=== PATIENT | female | born 1985 | race Caucasian/White ===

== ENCOUNTER 2020-12-22 12:00 | Outpatient (CLI) | payer OTHER, SELFPAY ==
[2020-12-22 13:43] LABS: Hepatitis B Surface Antigen Negative (Negative)
[2020-12-22 13:50] LABS: HIV 1/2 Ab P24 Ag Result Negative (Negative)
[2020-12-22 14:00] LABS: Hepatitis C Virus Antibody Negative (Negative)
[2020-12-24 11:01] LABS: Rapid Plasma Reagin Non-Reactive (NonReactive)
[2020-12-25 21:01] LABS: Hepatitis Be Antibody Nonreactive
[2020-12-26 18:32] LABS: HSV 1 IgM Screen Negative (Negative); HSV 2 IgM Screen Negative (Negative)
== END 2020-12-22 12:01 | disposition home or self-care (01) ==
PROVIDERS: Visit Provider Obstetrics & Gynecology
DX: A64 Unspecified sexually transmitted disease (principal)
CPT/HCPCS: 36415; 86592; 86695; 86696; 86703; 86707; 86803; 87340; G0432

== ENCOUNTER → 2021-02-23 00:34 | Outpatient (CLI) | payer OTHER, SELFPAY ==
[2021-02-23 20:54] LABS: SARS-CoV-2 RNA PCR Negative
== END ==
PROVIDERS: Visit Provider Obstetrics & Gynecology
DX: Z01.812 Encounter for preprocedural laboratory examination (principal); Z20.822 Contact with and (suspected) exposure to COVID-19
CPT/HCPCS: C9803; U0003; U0005

== ENCOUNTER 2021-02-27 00:26 | Day surgery (SDC) | payer OTHER, SELFPAY ==
[2021-02-15 13:56] VITALS: BMI 48.0
--- NOTE | 2021-02-26 14:31 | WPDANESEPPF ---
Anes - Initial Pre Proc Eval Procedure: Operation Date: 02/27/21 07:30 Proposed Procedures p Total Laparoscopic Assisted Hysterectomy With Bilateral Salpingectomy - Jael Carl MD Date/Time: 02/26/21 14:31 Surgeon: Jael Carl MD Pre Op Diagnosis: Menorrhagia Patient Data Age: 35 Gender: F Height: 1.77 m Weight: 149.7 kg Allergies Allergy/AdvReac Type Severity Reaction Status Date / Time Penicillins AdvReac Mild RASH ON Verified 02/27/21 06:18 CHEST/NECK Home Medications Medication Instructions Recorded Confirmed Type alprazolam 0.5 mg PO BID PRN 02/15/21 02/27/21 History Patient hx anesthesia problems: none Family hx anesthesia problems: none PMFSH Past Medical History Medical History (Updated 02/26/21 @ 14:32 by Catracho Manzano MD) Anxiety Migraine Morbid obesity with BMI of 45.0-49.9, adult Social History Social History Years smoked: 10 Smoking status: Former smoker Tobacco type: cigarettes Alcohol intake: current Alcohol use details: 1/MONTH Substance use: current Substance use type: marijuana Other substance usage details: EDIBLES Last use: 02/14/21 Living arrangements: with family Spiritual care concerns: No Anes - Eval Final PreProcedure Day of Procedure 02/26/21 14:31 Patient weight: morbidly obese Heart: regular rate and rhythm Lungs: clear to auscultation and normal air movement Airway: Mallampati scale class II Neurological: alert and oriented Last oral intake: >/= 8 hours ASA classification: III Emergent: no Anesthetic plan: proceed Anesthesia type and monitoring: general ETT Informed Consent: The patient's anesthetic plan and its attendant risks and benefits were discussed with the patient/family/POA. Questions were solicited and answers provided to the satisfaction of the patient/family/POA.
[2021-02-27] VITALS (12 sets, daily range): BP systolic 104–136; BP diastolic 50–81; PULSE 58–91; RESP 13–20; TEMP 36.2–37.3; O2SAT 94–100
[2021-02-27] MEDS: ACETAMINOPHEN 500 MG TABLET 1000 MG PO (06:20)
[2021-02-27] MEDS: LACTATED RINGERS 1,000 ML 30 ML IV CONT ×2 (06:40→10:14)
[2021-02-27] MEDS: KETOROLAC 15 MG/ML VIAL (*BKC) IV PUSH (06:46)
--- NOTE | 2021-02-27 07:18 | WPDHPUPDATE1 ---
History and Physical Update Update Date/Time: 02/27/21 07:18 History and Physical has been reviewed, including an updated exam of the patient. There are NO changes in the patient's condition. Risks, benefits, and alternatives have been discussed and questions answered. Patient agrees to proceed with procedure.
[2021-02-27] MEDS: ceFAZolin 3 GM/D5W 100 ML 100 ML IVPB (07:38)
[2021-02-27] MEDS: SCOPOLAMINE 1.5 MG PATCH TRANSDERM (08:36)
--- NOTE | 2021-02-27 10:16 | PM.PROC ---
Procedure Note - Detailed Date of procedure: 02/27/21 Pre-op diagnosis: Menorrhagia Myoma Post-op diagnosis: same Procedure performed: Total laparoscopic hysterectomy. Description of procedure: The patient was taken to the operating room. She was prepped and draped in the dorsal lithotomy position. A speculum was placed in the vagina. The cervix was grasped with a tenaculum. Stay sutures were placed at 3 and 9:00 a.m. of 0 Vicryl. The stay sutures were brought through the Celestine up. The ARLYN manipulator was placed in the vagina with a fixed Celestine cup. The cup was then pushed up around the cervix. The sutures were tied to the handle of the ARLYN manipulator. A 5 mm incision was made on the abdominal skin of the left upper quadrant using a scalpel. A 5 mm trocar was inserted into the intra-abdominal cavity under direct visualization the scope. Pneumoperitoneum was achieved. An 11 mm incision was made in the left lower quadrant of the abdomen with a scalpel. A 11 mm trocar was inserted into the intra-abdominal cavity under direct visualization the scope. A 5 mm periumbilical incision was made. A 5 mm scope was placed into the intra-abdominal cavity under direct visualization of the scope. The bilateral fallopian tubes were removed. The paratubal tissue in the area of the uterus was grasped with the LigaSure cautery and transected after being cauterized. The paratubal tissue from the ovary to the uterine cornu was cauterized and transected with LigaSure cautery. This was all done in a bilateral fashion. The tube was transected at the area of the uterine cornua and the tubes was removed through the 11 mm trocar site. The suspensory ligament of the ovary was cauterized and transected with ligature cautery in a bilateral fashion. The fallopian tubes were cauterized and transected in a bilateral fashion with LigaSure cautery. The round ligaments were cauterized and transected in bilateral fashion with LigaSure cautery. The round ligaments were cauterized and transected bilaterally with LigaSure cautery. The broad ligaments were cauterized and transected along the lateral aspects of the uterus down the level of the uterine arteries. A bladder flap was created using sharp and blunt dissection. The ureters were dissected out bilaterally down to the level of the uterine arteries. They could be visualized from the pelvic brim down the uterine arteries. Staying very close to the cervix the parametrium was cauterized transected in a stepwise fashion down to the level of the Celestine cup. The Bladder flap was moved distally over the Celestine cup using sharp and blunt dissection. The impression of the entire cup was visualized around the cervix. An incision was made with unipolar cautery down under the Celestine cup creating a colpotomy incision all the way around the cervix. The uterus was taken out through the vagina. A pneumo occluder was placed in the vagina. The vagina was closed with 0 V lock suture in a running fashion. The ureters were identified again and found to be intact to the level of the uterine arteries. The pelvis was irrigated with a copious amount of antibiotic irrigation. The pneumoperitoneum was reduced. The trocars were removed. The skin was closed subcuticular 4 Monocryl covered with Dermabond. The pneumo occluder was removed from the vagina. The vagina was irrigated with Betadine. The patient tolerated the procedure well. She was taken to the recovery room in stable condition. Sponge lap and needle counts were correct x2. Anesthesia: GETA Surgeon: Jael Carl MD Estimated blood loss (mL): 200 Drains: No Packing: No Pathology: yes Complications: No immediate complications Condition: stable Disposition: PACU Findings: Grossly normal appearing tubes and ovaries. Uterus - 11cm
[2021-02-27] MEDS: fentaNYL CITRATE INJ (*CRX) 100 MCG/2 ML VIAL 25 MCG IV PUSH (11:12)
--- NOTE | 2021-02-27 11:34 | PC.NURSE ---
This patient, Klaudia Dasilva, was received from PACU per bed to room 279. Patient/family oriented to unit policies and routines
[2021-02-27] MEDS: HYDROcodone/acetaminophen (*CRX) 10-325 MG TABLET 1 TAB PO ×4 (11:45→23:52)
[2021-02-27] MEDS: KETOROLAC 30 MG/ML VIAL (*BKC) IV PUSH (14:03)
[2021-02-27] MEDS: ALPRAZolam (*CRX) 0.5 MG TABLET PO (17:20)
[2021-02-27] MEDS: fentaNYL CITRATE INJ (*CRX) 100 MCG/2 ML VIAL 50 MCG IV PUSH ×3 (17:20→21:47)
[2021-02-27] MEDS: SIMETHICONE 80 MG TAB.CHEW PO (23:56)
[2021-02-28 04:30] VITALS: BP 114/55; PULSE 52; RESP 17; TEMP 36.9
[2021-02-28] MEDS: HYDROcodone/acetaminophen (*CRX) 10-325 MG TABLET 1 TAB PO ×3 (04:37→11:53)
[2021-02-28] MEDS: SIMETHICONE 80 MG TAB.CHEW PO ×3 (04:41→11:52)
[2021-02-28] MEDS: IBUPROFEN 600 MG TABLET PO (07:43)
[2021-02-28] MEDS: ALPRAZolam (*CRX) 0.5 MG TABLET PO (07:43)
[2021-02-28 08:00] VITALS: BP 107/55; PULSE 70; RESP 18; TEMP 36.9; TEMP 37.1; O2SAT 100
--- NOTE | 2021-02-28 08:06 | PM.GYNPNOP ---
MOBILE APPLICATION DEVELOPER - A/P Postoperative Procedures: Procedures Operation Date: 02/27/21 07:30 Actual Procedure Side Surgeon p Total Laparoscopic Assisted Hysterectomy With Bilateral Salpingectomy Bilateral Jael Carl MD Postoperative day: 1 Postoperative status: doing well Postoperative plan: see orders Time Spent With Patient Time: Total time spent is greater than 50% in coordination of care (as documented) at patient's floor/unit and/or counseling patient: Time with patient: less than 15 minutes MOBILE APPLICATION DEVELOPER- PN:Subj Post-Op Subjective Date/time seen: 02/28/21 08:06 Subjective: patient reports feeling better, patient has no complaints and pain is well controlled Exam Const: General: healthy appearing, comfortable and no acute distress Resp: Auscultation: clear to auscultation bilaterally, no rales, no rhonchi and no wheezes Cardio: Rate: regular rate Heart sounds: no click, no murmurs and no rubs GI: Inspection: non-distended Auscultation: normal bowel sounds Extrem: General: normal to inspection, no pedal edema and no calf tenderness MOBILE APPLICATION DEVELOPER - PN: Obj Data Vital Signs Vital Signs: Vital Signs - 24 hr 02/27/21 10:14 02/27/21 10:25 02/27/21 10:39 Temperature 97.5 F L Pulse Rate 84 66 75 Respiratory Rate 20 18 18 Blood Pressure 111/68 109/69 107/66 Pulse Oximetry 100 100 100 02/27/21 10:45 02/27/21 11:00 02/27/21 11:15 Temperature 97.8 F Pulse Rate 70 72 65 Respiratory Rate 16 16 16 Blood Pressure 111/71 112/64 104/70 Pulse Oximetry 100 95 95 02/27/21 11:29 02/27/21 11:35 02/27/21 16:00 Temperature 97.2 F L 97.8 F Pulse Rate 58 L 61 87 Respiratory Rate 16 18 20 Blood Pressure 119/80 115/81 136/67 Pulse Oximetry 94 100 02/27/21 19:20 02/27/21 23:55 02/28/21 04:30 Temperature 99.1 F 98.7 F 98.4 F Pulse Rate 79 71 52 L Respiratory Rate 17 13 17 Blood Pressure 119/50 L 124/67 114/55 L Pulse Oximetry Intake/Output Intake/Output: Intake & Output 02/25/21 02/26/21 02/27/2102/28/21 23:59 23:59 23:59 23:59 Intake Total 540 500 Output Total 1650 800 Balance -1110 -300 Meds/Results Medications: Active Medications Generic Name Dose Route Start Last Admin Trade Name Freq PRN Reason Stop Dose Admin Hydrocodone Bitart/Acetaminophen 1 tab 02/27/21 10:17 Hydrocodone/Acetaminophen (*Crx) 5-325 Mg Tablet PO Q3H PRN Pain Rated 5 or Less Hydrocodone Bitart/Acetaminophen 1 tab 02/27/21 10:17 02/28/21 07:43 Hydrocodone/Acetaminophen (*Crx) 10-325 Mg Tablet PO 1 tab Q3H PRN Administration Pain Rated 6 or Greater Alprazolam 0.5 mg 02/27/21 17:09 02/28/21 07:43 Alprazolam (*Crx) 0.5 Mg Tablet PO 0.5 mg BID PRN Administration Anxiety Fentanyl Citrate 50 mcg 02/27/21 17:07 02/27/21 21:47 Fentanyl Citrate Inj (*Crx) 100 Mcg/2 Ml Vial IV PUSH 50 mcg Q2H PRN Administration Breakthrough Pain Ibuprofen 600 mg 02/27/21 10:17 02/28/21 07:43 Ibuprofen 600 Mg Tablet PO 600 mg Q6H PRN Administration Cramping Ketorolac Tromethamine 30 mg 02/27/21 10:17 02/27/21 14:03 Ketorolac 30 Mg/Ml Vial (*Bkc) IV PUSH 03/04/21 10:18 30 mg Q6H PRN Administration Pain Rated 4-6 Naloxone HCl 0.1 mg 02/27/21 10:17 Naloxone Hcl 0.4 Mg/Ml Vial IV PUSH Q2M PRN Respiratory rate less than 10 Ondansetron HCl 4 mg 02/27/21 10:17 Ondansetron Inj 4 Mg/2 Ml Vial IV PUSH Q6H PRN Nausea And Vomiting Simethicone 80 mg 02/27/21 21:44 02/28/21 07:43 Simethicone 80 Mg Tab.Chew PO 80 mg Q2HR PRN Administration Gas Discomfort Labs Labs: Laboratory Results - last 24 hr 02/27/21 06:45 Blood Type A Positive Antibody Screen Negative
--- NOTE | 2021-02-28 09:27 | PC.NURSE ---
Pt. doing well. Passing gas and moving about room with slow steady pace. Discharge instructions given including when to follow up with Dr. Carl. Pt. verbalized understanding. Mother at side.
--- NOTE | 2021-02-28 09:37 | WPDANESPN ---
Anes - Prog Note Post-Op Date/Time: 02/28/21 09:37 Cardiovascular status: normal Respiratory status: normal Airway patency: baseline Mental status: baseline Post-Op hydration status: normal Vital Signs: Last Vital Signs Temp 37.1 C 02/28/21 08:00 Pulse 70 02/28/21 08:00 Resp 18 02/28/21 08:00 BP 107/55 L 02/28/21 08:00 Pulse Ox 100 02/28/21 08:00 Pain Score (VAS): 0 I/O: Intake & Output 02/27/21 02/28/21 02/28/21 23:59 07:59 15:59 Intake Total 500 600 Output Total 442 229 1655 Balance -250 -300 -575 Post-procedural complaints: none Patient Feedback: Patient satisfied with anesthetic care.
== END 2021-02-28 12:05 | disposition home or self-care (01) ==
LOC: ANHSURGERY 06:09 → ANHOB2 11:41
PROVIDERS: Visit Provider Obstetrics & Gynecology
PROC: 0UT9FZZ Resection of Uterus, Via Natural or Artificial Opening With Percutaneous Endoscopic Assistance (ICD-10-PCS; CPT 58571; principal; 2021-02-27 07:30)
DX: N92.0 Excessive and frequent menstruation with regular cycle (principal); N84.0 Polyp of corpus uteri; N83.8 Other noninflammatory disorders of ovary, fallopian tube and broad ligament; F32.9 Major depressive disorder, single episode, unspecified; E66.01 Morbid (severe) obesity due to excess calories; Z68.42 Body mass index [BMI] 45.0-49.9, adult; Z87.891 Personal history of nicotine dependence
CPT/HCPCS: 58571; 36415; 86850; 86900; 86901; 88307; 99199; A9270; C9803; J0330; J0690; J1100; J1200; J1885; J2250; J2405; J2704; J2710; J3010; J7030; J7120; U0003; U0005

== ENCOUNTER 2021-04-09 11:07 | Outpatient (CLI) | payer OTHER, SELFPAY ==
--- NOTE | ~2021-04-09 | CT_ITS ---
EXAMINATION: CT abdomen pelvis w con DATE: 04/09/2021 11:42 INDICATION: Postoperative pain. Status post hysterectomy on 02/27/2021 TECHNIQUE: Computed tomography (CT) of the abdomen and pelvis was performed with 100 cc Omnipaque 350 intravenous contrast. The dose-length product was 1128.14 mGy-cm. Automated exposure control and ite rative reconstruction technique were employed. COMPARISON: None. FINDINGS: Lung bases are unremarkable. Heart size normal. No significant pleural or pericardial effus ion. There is a small fat-containing umbilical hernia. No free air or free fluid. Status post hysterectomy. Bladder is decompressed. Fatty infiltration of the liver. Gallbladder is present. The spleen, pancreas, adrenal glands and kid neys are unremarkable. Nonobstructive bowel gas pattern. Small fat-containing umbilical hernia. Few s cattered diverticula of the colon without diverticulitis. IMPRESSION: 1. No acute abdominal abnormality. 2: Hepatic steatosis. Reviewed, dictated and finalized at location B.
== END 2021-04-09 11:08 ==
PROVIDERS: Visit Provider Obstetrics & Gynecology
DX: G89.18 Other acute postprocedural pain (principal); K76.0 Fatty (change of) liver, not elsewhere classified
CPT/HCPCS: 74177; Q9967

== ENCOUNTER 2025-06-28 09:17 | Emergency (ER) | payer BC, SELFPAY ==
--- NOTE | ~2025-06-28 | XR_ITS ---
EXAMINATION: XR ankle RT min 3V DATE: 06/28/2025 09:51 INDICATION: Fall. Ankle TECHNIQUE: 4 images of the right ankle were obtained. COMPARISON: None. FINDINGS: Tiny acute avulsion fracture of the distal aspect of the lateral malleolus with adjacent soft tissue swelling. There is a 6 mm ossific density along the anterior aspect of the distal right tibia about the tibiotalar joint seen in the lateral projection. Differential includes osteophyte or avulsion fracture of indeterminate age. No other fracture identified. Talar dome is unremarkable. Soft tissue swelling about the right ankle. Small plantar calcaneal spur. IMPRESSION: 1. Tiny acute avulsion fracture of the distal aspect of the lateral malleolus with adjacent soft tissue swelling. 2. There is a 6 mm ossific density along the anterior aspect of the distal right tibia about the tibiotalar joint seen in the lateral projection. Differential includes osteophyte or avulsion fracture of indeterminate age. Correlate for point tenderness. Consider a CT or MRI for further assessment. Reviewed, dictated and finalized at location Q. IMPRESSION: 1. Tiny acute avulsion fracture of the distal aspect of the lateral malleolus w ith adjacent soft tissue swelling. 2. There is a 6 mm ossific density along the anterior aspect of the distal righ t tibia about the tibiotalar joint seen in the lateral projection. Differential includes osteophyte or avulsion fracture of indeterminate age. Correlate for p oint tenderness. Consider a CT or MRI for further assessment.
--- NOTE | ~2025-06-28 | CT_ITS ---
EXAMINATION: CT ankle RT wo con DATE: 06/28/2025 10:30 INDICATION: Right ankle pain. Avulsion fracture. TECHNIQUE: Computed tomography (CT) of the right ankle was performed without intravenous contrast. The dose-length product was 363.99 mGy-cm. Automated exposure control and iterative reconstruction technique were employed. COMPARISON: CT dated 06/28/2025 FINDINGS: There is an avulsion fracture distal tip of the fibula. No distal tibial fracture is identified. There are small degenerative calcaneal enthesophytes. 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 There is mild lateral soft tissue swelling. Talar dome is unremarkable. IMPRESSION: 1. Small avulsion fracture distal aspect of the fibula. Reviewed, dictated and finalized at location O.
[2025-06-28 09:23] VITALS: BP 133/80; PULSE 87; RESP 20; TEMP 36.7; O2SAT 99
--- OUTSIDE RECORDS SUMMARY | 2025-06-28 09:28 | XMS_ITS | Encounter Summary ---
Author Organization [facility] Address [address] [place] [address] Phone Care Team Providers Care Food Quality Technician Name Role Phone Ildefonso Block MD Unavailable [phone] Debbie Clement NP Primary Care Provider [phone] Encounter Details Date Type Department Care Team (Latest Contact Info) Description 06/27/2025 Results Follow-Up [facility] [address] [place] [address] David Adkins PA [address] [place] [address] CBC with auto differential, Comprehensive metabolic panel Social History Tobacco Use Types Packs/Day Years Used Date Smoking Tobacco: Every Day Vaping Started: 2023 Smokeless Tobacco: Never AUDIT-C Answer Date Recorded Q1: How often do you have a drink containing alcohol? Never 05/11/2025 Q2: How many drinks containi ng alcohol do you have on a typical day when you are drinking? Patient does not drink Q3: How often do you have si x or more drinks on one occasion? Never 05/11/2025 PHQ-2 Answer Date Recorded PHQ-2 Total Score (If total score is 3 or more points, staff should administer the PHQ-9) 2 05/11/2025 PHQ-9 Answer Date Recorded PHQ-9 Total Score 9 05/11/2025 Personal Safety Answer Date Recorded Have you ever been in or are you currently in a harmful physical or emotional relationship or is someone making you feel afraid or unsafe? Denies 01/27/2025 Comments No Sex and Gender Information Value Date Recorded Sex Assigned at Not on file Legal Sex Female 3:17 PM CLASSIFIED AD TAKER Gender Identity Not on file Sexual Orientation Not on file documented as of this encounter Plan of Treatment Not on file documented as of this encounter Visit Diagnoses Not on filedocumented in this encounter Care Teams Food Quality Technician Relationship Specialty Start Date End Date Debbie Clement NP [address] [facility] [address] [place] [address] PCP - General Family Medicine 06/14/24 Ildefonso Block MD [address] [place] [address] DR EDY Valencia [facility] [address] [place] [address] Surgeon Orthopedic Surgery 09/02/21 documented as of this encounter
--- OUTSIDE RECORDS SUMMARY | 2025-06-28 09:28 | XMS_ITS | Clinical Summary ---
Author Organization [facility] Address [address] [place] [address] Phone Care Team Providers Care Correctional Medicine Physician Name Role Phone Unavailable Primary Care Provider Unavailabl e Allergies Active Allergy Reactions Criticality Noted Date Comments Penicillins Hives Medium 12/29/2019 Medications ondansetron (ZOFRAN-ODT) 4 MG TABLET DISPERSIBLE Take 1 Tablet by mouth every 8 hours as needed for Nausea - 1st line. 20 Tablet 02/15/20 23 Active prochlorperazine (COMPAZINE) 10 MG TabletIndications:V iral gastroenteritis Take 1 Tablet by mouth every 8 hours as needed for Nausea - 2nd line. 30 Tablet 03/02/20 24 Active Additional Information Patient not taking.Reported on 06/14/2024 hydroxychloroquine (PLAQUENIL) 200 MG Tablet Take 400 mg by mouth daily. Active VITAMIN D PO Take by mouth. Ac tive Active Problems Problem Noted Date Diagnosed Date Chronic joint pain 08/19/2022 Joint swelling 08/19/2022 Immunizations Immunization Administration Dates Next Due Influenza Vaccine, Quadrivalent, PF 09/12/2022 Family History Medical History Relation Name Comments Congestive Heart Failure Father Jamaal Heart Attack Father Jamaal Diabetes Maternal Aunt 1 Aisha Thyroid Disease Maternal Aunt 1 Aisha Diabetes Maternal Aunt 2 Brenda Diabetes Maternal Grandfather Jesus Heart Attack Maternal Grandfather Jesus Hypertension Maternal Grandfather Jesus Diabetes Maternal Grandmother Armando Diabetes Maternal Uncle 1 Sammy Diabetes Maternal Uncle 2 Jeff Diabetes Mother Najma Migraines Mother Najma Rheumatoid Arthritis Mother Najma Congestive Heart Failure Paternal Grandfather Horace Diabetes Paternal Grandfather Horace Heart Attack Paternal Grandfather Horace Diabetes Paternal Grandmother Vidhya Congestive Heart Failure Paternal Uncle 1 Horace (Jean Claude) Diabetes Paternal Uncle 1 Horace (Jean Claude) Diabetes Paternal Uncle 2 Andrew Relation Name Status Comments Father Jamaal Maternal Aunt 1 Aisha Maternal Aunt 2 Brenda Maternal Grandfather Jesus Maternal Grandmother Armando Maternal Uncle 1 Sammy Maternal Uncle 2 Jeff Mother Najma Paternal Grandfather Horace Paternal Grandmother Vidhya Paternal Uncle 1 Horace (Jean Claude) Paternal Uncle 2 Andrew Social History Tobacco Use Types Packs/Day Years Used Date Smoking Tobacco: Former Cigarettes 0.3 10 Smokeless Tobacco: Never Tobacco Cessation:Counseling Given: Not Answered Alcohol Use Standard Drinks/Week Comments Not Currently 0 (1 standard drink = 0.6 oz pur e alcohol) [facility] Utilities Answer Date Recorded In the past 12 months has e electric, gas, oil, or water [employer] threatened to shut off services in your home? Patient declined 03/02/2024 Social Connection and Isolation Panel Answer Date Recorded In a typical week, how many times do you talk on the phone with family, friends, or neighbors? Patient declined 03/02/2024 How often do you get togethe r with friends or relatives? Patient declined 03/02/2024 How often do you attend buddhism or hindu serv ices? Patient declined 03/02/2024 Do you belong to any clubs o r organizations such as buddhism groups, unions, fraternal or athletic groups, or school groups? Patient declined 03/02/2024 How often do you attend meet ings of the clubs or organizations you belong to? Patient declined 03/02/2024 Are you , , di vorced, , never , or living with a partner? Patient declined 03/02/2024 AUDIT-C Answer Date Recorded Q1: How often do you have a drink containing alc ohol? Patient declined 03/02/2024 Q2: How many drinks containi ng alcohol do you have on a typical day when you are drinking? Patient declined 03/02/2024 Q3: How often do you have si x or more drinks on one occasion? Patient declined 03/02/2024 Overall Financial Resource Strain (CARDIA) Answe r Date Recorded How hard is it for you to pa y for the very basics like food, housing, medical care, and heating? Patient declined 03/02/2024 PHQ-2 Answer Date Recorded Total Score - Questions 1-9 0 12/04 [facility] - Occupational Stress Questionnaire Answer Date Recorded Do you feel stress - tense, restless, nervous, or anxious, or unable to sleep at night because your mind is troubled all the time - these days? Patient declined 03/02/2024 Exercise Vital Sign Answer Date Recorde d On average, how many days pe r week do you engage in moderate to strenuous exercise (like a brisk walk)? Patient declined On average, how many minutes do you engage in exercise at this level? Patient declined 03/02/2024 Hunger Vital Sign Answer Date Recorded Within the past 12 months, y ou worried that your food would run out before you got the money to buy more. Patient declined Within the past 12 months, t he food you bought just didn't last and you didn't have money to get more. Patient declined 11/2023 PRAPARE - Transportation Answer Date Re corded In the past 12 months, has l ack of transportation kept you from medical appointments or from getting medications? Patient declined 03/02/2024 In the past 12 months, has l ack of transportation kept you from meetings, work, or from getting things needed for daily living? Patient declined 03/02/2024 Housing Stability Vital Sign Answer Jaime e Recorded In the last 12 months, was t here a time when you were not able to pay the mortgage or rent on time? Patient declined 03/02/20 24 Number of Places Lived in the Last Year Not on f ile 03/02/2024 In the last 12 months, was t here a time when you did not have a steady place to sleep or slept in a penitentiary (including now)? Patient declined 03/02/2024 Sexually Active Control Partners Comments Not Currently Female, Male Comments No Sex and Gender Information Value Date Recorded Sex Assigned at Not on file Legal Sex Female 10:40 PM CDT Gender Identity Not on file Sexual Orientation Not on file Last Filed Vital Signs Vital Sign Reading Time Taken Comments Blood Pressure 138/86 06/14/2024 11:51 AM CDT Pulse 78 06/14/2024 11:51 AM CDT Temperature 36.7 C (98 F) 06/14/2024 11:51 AM CDT Respiratory Rate 18 06/14/2024 11:5 1 AM CDT Oxygen Saturation 99% 06/14/2024 11: 51 AM CDT Inhaled Oxygen Concentration - - Weight 153.2 kg (337 lb 11.2 oz) 03/02/2024 1:44 PM CDT Height 177.8 cm (5' 10) 03/02/2024 1:44 PM CDT Body Mass Index 48.45 03/02/2024 1:44 PM CDT Plan of Treatment Health Maintenance Due Date Last Done Comments Mammogram 1984 TdaP Immunization 1984 Human Papillomavirus (HPV) Immunization (1 - 3-dose SCDM series) 2011 Discussion re Starting/Frequency of Mammograms 2024 Influenza Immunization (#1) 2025 09/12/2022, 0 11/15/2019 Respiratory Syncytial Virus (RSV) Immunization (Adult) (1 - 1-dose 75+ series) 2059 DTaP/Tdap/Td Immunization Discontinued 1998, 06/10/1989, 05/06/1986, Additional history exists Hepatitis B Immunization Discontinued 07/05/1999, 0804/1999 Hepatitis C Virus (HCV) Screening Completed 02/11/2024, 08/19/2022 Meningococcal Immunization (ACWY) Aged Out No longer eligible based on patient's age to complete this topic Pneumococcal Immunization Combined Aged Out No longer eligible based on patient's age to complete this topic Rotavirus Immunization Aged Out No lo nger eligible based on patient's age to complete this topic SARS-COV-2 Immunization Discontinued Procedures Procedure Name Priority Date/Time Associated Diagnosis Comments HEPATITIS PANEL ACUTE (AHP) Routine 08/19/2022 9:32 AM CDT Chronic joint pain Joint swelling from Last 3 Months or Most Recently Relevant to Health Maintenance Results * HEPATITIS PANEL ACUTE (AHP) (08/19/2022 9:32 AM CDT) HEPATITIS A IGM ANTIBODY NON DETECTED NON DETECTED [facility] [id number] B 08/19/2022 3:40 PM CDT [facility] Comment: IGM Antibodies to HAV not detected. Does not exclude early acute or recovered HAV infection. HEP B CORE AB (IGM) NON DETECTED NON DETECTED [facility] [id number] B 08/19/2022 3:40 PM CDT [facility] Comment:IGM anti-HBC not det ected. Does not exclude the possibility of exposure to or infection with HBV. HEPATITIS B SURFACE ANTIGEN NON DETECTED NON DETECTED [facility] [id number] B 08/19/2022 3:40 PM CDT [facility] Comment:A nonreactive test r esult does not exclude the possibility of exposure to or infection with Hepatitis B virus. A nonreactive test result in individuals with prior exposure to hepatitis B may be due to antigen levels below the detection limit of this assay or lack of antigen reactivity to the antibodies in this assay. hepatitis C antibody 0.17 <1 S/CO [facility] [id number] B 08/19/2022 3:40 PM CDT [facility] Comment: Signal/Cutoff ratio < 0.79 is Nondetected Signal/Cutoff ratio 0.80-0.99 is Grayzone Signal/Cutoff ratio > 0.99 is Detected Supplemental assays are recommended if signal/cutoff ratio is >/=1.00. Signal/cutoff ratio result >/= 5.00 is 97% predictive of positivity for recombinant immunoblot assay (RIBA) and will be reported to the [place] [facility] of Public [facility] as required. Blood Venipuncture / Unknown 08/19/2022 9:32 AM CDT 08/19/2022 9:58 AM CDT us Federico Marti MD HEMATOLOGY ORDERABLES Final Resu lt [facility] [address] [place] [address], [place] from Last 3 Months or Most Recently Relevant to Health Maintenance Insurance [place] [id number] [facility]
--- OUTSIDE RECORDS SUMMARY | 2025-06-28 09:28 | XMS_ITS | Encounter Summary ---
Author Organization [facility] Address [address] [place] [address] Phone Care Team Providers Care Culinary Arts Instructor Name Role Phone Federico Marti MD Primary Care Provider [phone] Reason for Visit * Reason Comments Medication Refill Encounter Details Date Type Department Care Team (Late st Contact Info) Description 03/16/2023 Refill [facility] [address] [place] [address] Federico Marti MD [address] [place] [address] Medication Refill Social History Tobacco Use Types Packs/Day Years Used Date Smoking Tobacco: Former Cigarettes 0.3 10 Smokeless Tobacco: Never Alcohol Use Standard Drinks/Week Comments Not Currently 0 (1 standard drink = 0.6 oz pur e alcohol) Sexually Active Control Partners Comments Not Currently Female, Male Comments No Sex and Gender Information Value Date Recorded Sex Assigned at Not on file Legal Sex Female 10:40 PM CDT Gender Identity Not on file Sexual Orientation Not on file COVID-19 Exposure Response Date Recorded In the last 10 days, have yo u been in contact with someone who was confirmed or suspected to have Coronavirus/COVID-19? No / Unsure 02/18/2023 7:44 AM CDT documented as of this encounter Miscellaneous Notes * Telephone Encounter - Diamond Song RN - 03/16/2023 4:45 PM CDT Medication failed the protocol, provider to review and approve the medication order if appropriate. Requested Prescriptions Pending Prescriptions Disp Refills gabapentin (NEURONTIN) 100 MG Capsule [Pharmacy Med Name: GABAPENTIN 100 MG CAPSULE] 90 Capsule 1 Sig: TAKE 1 CAPSULE BY MOUTH THREE TIMES A DAY Not Delegated - Anticonvulsants Excluding Benzodiazepines Protocol Failed - 03/16/2023 1:56 PM Failed - This refill cannot be delegated Passed - Visit with relevant provider in past 12 months or upcoming 90 days Recent Visits Date Type Provider Dept 02/18/23 Office Visit Janeth Celeste, ECONOMICS INSTRUCTOR, [employer]HER [facility] 10/23/22 Office Visit Federico Marti MD [facility] 09/12/22 Office Visit Federico Marti MD [facility] 08/19/22 Office Visit Federico Marti MD [facility] Showing recent visits within past 365 days and meeting all other requirements Future Appointments No visits were found meeting these conditions. Showing future appointments within next 90 days and meeting all other requirements documented in this encounter Plan of Treatment Not on file documented as of this encounter Visit Diagnoses Diagnosis Pain in unspecified joint Pain, unspecified documented in this encounter Additional Health Concerns Infection Onset Date Last Indicated Resolved Time COVID - 19 08/24/2023 08/24/2023 09/03/2023 12:1 9 AM CDT COVID - 19 Confirmed 08/24/2023 08/24/2023 023 12:17 AM CUSTOMER SERVICE ADMINISTRATOR Respiratory Rule-Out 03/02/2024 03/02/2024 024 2:22 PM CDT COVID - 19 03/02/2024 03/02/2024 03/02/2024 2:22 PM CDT documented as of this encounter Care Teams Culinary Arts Instructor Relationship Specialty Start Date End Date Federico Marti MD [address] [place] [address] PCP - General Family Medicine 08/19/22 04/25/25 documented as of this encounter
--- OUTSIDE RECORDS SUMMARY | 2025-06-28 09:29 | XMS_ITS | Clinical Summary ---
Author Organization [facility] Address [facility] [place] [address] Care Team Providers Care Vocational Rehabilitation Teacher Name Role Phone Ildefonso Block MD Unavailable [phone] Debbie Clement NP Primary Care Provider [phone] Allergies Active Allergy Reactions Criticality Noted Date Comments Penicillins Hives Medium Medications multivitamin- Ve-djyx-nmwib als tablet Take by mouth Activ e DULoxetine DR (CYMBALTA) 60 mg capsule Take 1 capsule (60 mg total) by mouth daily 90 capsule 3 12/21/19 25 026 Active magnesium sulfate (EPSOM SALTS) 100 % crystalsIndic ations:Anal fissure,Acute posterior anal fissure 1 g 3 (three) times a day as needed (Use in Sitz bath 2-3 times daily as directed.) Collaborating physician Surendra Hawthorne MD 500 g 2 01/28/20 25 Active celecoxib (CeleBREX) 200 mg capsule Take 1 capsule (200 mg total) by mouth 2 (two) times a day 180 capsule 3 03/20/20 25 026 Active amitriptyline (ELAVIL) 25 mg tablet Take 1 tablet (25 mg total) by mouth nightly 90 tablet 1 03/31/20 25 025 Active pregabalin (LYRICA) 150 mg capsule Take 1 capsule by mouth twice daily 60 capsule 06/20/20 25 Active ergocalcifero l (VITAMIN D) 50,000 unit capsule Take 1 capsule (50,000 Units total) by mouth every 7 days 08/01/20 24 025 Discontinued pregabalin (LYRICA) 150 mg capsule Take 1 capsule (150 mg total) by mouth 2 (two) times a day 60 capsule 1 03/30/20 025 Discontinued Active Problems Problem Noted Date Diagnosed Date Nausea and vomiting 05/11/2025 Assessment & Plan (05/11/2025 7:47 PM CDT): Orders: POC Influenza A/B, COVID-19 antigen Tests negative Cellulitis of right upper extremity 04/19/2025 Assessment & Plan (04/19/2025 4:26 PM CDT): Chronic pain of both knees 04/01/2025 Assessment & Plan (04/01/2025 8:35 PM CDT): Encounter for weight management 03/31/2025 Assessment & Plan (03/31/2025 3:10 PM CDT): Insomnia 03/31/2025 Assessment & Plan (03/31/2025 3:10 PM CDT): Symptoms involving urinary system 03/31/2025 Assessment & Plan (03/31/2025 3:10 PM CDT): Orders: POCT urinalysis dipstick Acute cystitis without hematuria 03/31/2025 Assessment & Plan (03/31/2025 3:10 PM CDT): Snores 03/31/2025 Assessment & Plan (03/31/2025 3:10 PM CDT): Chronic diarrhea 03/31/2025 Assessment & Plan (03/31/2025 3:10 PM CDT): Acute posterior anal fissure 01/27/2025 Left lateral epicondylitis 12/21/2024 Polyarthralgia 12/21/2024 Overview (04/10/2025): US right hand/wrist (04/10/25): 1. No significant joint effusions, power doppler, tendinopathy, or erosive changes appreciated on US examination. 2. Moderate synovial thickening in the 4th MCP and 3rd PIP joints. 3. Area of concern with attention to the volar 4th MCP reveals no identified spurring, nodule, or mass seen on US examination. Assessment & Plan (06/26/2025 3:49 PM CDT): Klaudia is a 39 yoF that initially presented with previous diagnosis of SLE/FMS most recently following with Dr. Ward and transferring care. C/o chronic widespread joint complaints with symptoms that are mostly non-inflammatory and worsened after a work day. Otherwise, previous symptoms included facial rash/flushing (no rash at present), nose/mouth sores, sicca symptoms, and bouts of diarrhea- all of which were of unknown significance.Has general ttp on exam without obvious synovitis. Labs 03/14/2025 revealed a negative Avise with C3 complement 175 (high) and C4 complement WNL. Additional labs revealed an ESR of 25 with CRP of 0.41 mg/dL. Obtain x-ray displayed a 3rd MCP head erosion with no other concerning findings with right hand x-ray WNL. Bilateral feet x-rays revealed small heel spurs with no other concerning findings. Right hand/wrist ultrasound 04/10/1025 without any evidence to suggest active uncontrolled inflammation. For this reason, we held hydroxychloroquine for the last 3 months without any worsened joint symptoms. I still do not see obvious evidence to suggest active SLE and/or other inflammatory arthritis/CTD. Will continue to monitor, which was discussed at today's visit. Will likely consider recheck Avise at next visit, if symptoms persist. Assessment & Plan (03/28/2025 12:58 PM CDT): Klaudia is a 39 yoF that initially presented with previous diagnosis of SLE/FMS most recently following with Dr. Ward and transferring care. C/o chronic widespread joint complaints with symptoms that are mostly non-inflammatory and worsened after a work day. Otherwise, c/o facial rash/flushing (no rash at present), nose/mouth sores, sicca symptoms, and bouts of diarrhea- all of which is of unknown significance. Currently treated with hcq 400 mg daily, lyrica 100 mg bid, duloxetine 60 mg daily, and tramadol 50 mg q6 hours prn. Has general ttp on exam without obvious synovitis. Labs 03/14/2025 revealed a negative Avise with C3 complement 175 (high) and C4 complement WNL. Additional labs revealed an ESR of 25 with CRP of 0.41 mg/dL. Obtain x-ray displayed a 3rd MCP head erosion with no other concerning findings with right hand x-ray WNL. Bilateral feet x-rays revealed small heel spurs with no other concerning findings. At this time, do not see obvious evidence to suggest active SLE and or other inflammatory arthritis/CTD. Will trial holding hydroxychloroquine and monitoring symptoms off the medication. Will obtain right hand/wrist ultrasound, including assessing the palmar aspect of the R hand ring finger (cyst?) to assess for any evidence to suggest active inflammation. Fu 6 weeks. Sooner if needed. Seen with Dr. Gibbs. Assessment & Plan (03/13/2025 12:03 PM CDT): Klaudia is a 39 yoF presenting with previous diagnosis of SLE/FMS most recently following with Dr. Ward and transferring care. C/o chronic widespread joint complaints with symptoms that are mostly non-inflammatory and worsened after a work day. Otherwise, c/o facial rash/flushing (no rash at present), nose/mouth sores, sicca symptoms, and bouts of diarrhea- all of which is of unknown significance. Currently treated with hcq 400 mg daily, lyrica 100 mg bid, duloxetine 60 mg daily, and tramadol 50 mg q6 hours prn. Has general ttp on exam without obvious synovitis. At this time, do not see obvious evidence to suggest active SLE. Suspect that FMS and body habitus are contributing significantly to her chronic pain complaints. Will evaluate further with appropriate serologies, radiographs, and zora hand/wrist US to assess for inflammation. Fu 2 weeks. Sooner if needed. Seen with Dr. Gibbs. Pharyngitis 10/12/2024 Dysfunction of both eustachian tubes 10/12/2024 Laryngitis, acute 10/12/2024 Class 3 severe obesity due t o excess calories with body mass index (BMI) of 50.0 to 59.9 in adult 09/16/2024 Assessment & Plan (05/11/2025 7:47 PM CDT): BMI 53.46. Discussed healthy diet, routine exercise and encouraged weight loss at last office visit. Concern at this time is to stay well hydrated with diet as tolerated. She has lost 9 lb since 04/24/2025. Assessment & Plan (03/28/2025 12:56 PM CDT): Unfortunately, I suspect that body habitus contributes significantly to her chronic pain complaints. We did spend time discussing weight loss, including diet, exercise. Would likely benefit from weight loss surgery, which I recommended discussion with PCP. Fibromyalgia 08/04/2024 Assessment & Plan (06/26/2025 3:47 PM CDT): Since last visit, has increased Lyrica to 150 mg b.i.d. with some improvement in her chronic widespread arthralgias. Continues to note chronic migratory joint complaints involving the knees, hips, and shoulders predominantly. Scattered tender joints on exam without any joint synovitis. Given some of her chronic residual arthralgias, did discuss potentially increasing Lyrica to 225 mg b.i.d.. At this time, she feels that symptoms are manageable on current treatment regimen and defers increase on Lyrica. Did discuss potential increase, symptoms were to worsen. At present, will continue Celebrex 200 mg b.i.d., Lyrica 150 mg b.i.d., and Cymbalta 60 mg daily. Routine labs today. Have previously encouraged routine exercise, including Ly Chi. Follow-up 4 months. Sooner if needed. Assessment & Plan (03/28/2025 12:54 PM CDT): Suspect that fibromyalgia is contributing significantly to her chronic pain complaints. She is currently treated with celebrex 200 mg bid, Lyrica 100 mg b.i.d. and Cymbalta 60 mg daily with persistent pain complaints. Will increase lyrica to 150 mg bid. Spent time encouraging routine exercise, including ly chi. Encounter for screening mamm ogram for malignant neoplasm of breast 08/04/2024 Assessment & Plan (05/11/2025 7:47 PM CDT): Orders: Screening Mammogram 2D Bilateral; Future Assessment & Plan (08/04/2024 7:54 PM CDT): Mammogram ordered Morbid obesity with BMI of 50.0-59.9, adult 08/03 Assessment & Plan (04/19/2025 4:26 PM CDT): BMI 54.87. Discussed healthy diet, increased exercise and encouraged weight loss. Assessment & Plan (04/01/2025 8:40 PM CDT): BMI 53.67. Discussed healthy diet, routine exercise and encouraged weight loss. Assessment & Plan (12/21/2024 9:00 PM DRAIN TILER): BMI 50.99. Assessment & Plan (10/12/2024 1:54 PM DRAIN TILER): BMI 49.26.She was counseled on the importance of obtaining a healthy weight and the risks of obesity. Weight loss recommended. Assessment & Plan (08/04/2024 7:56 PM CDT): BMI 49.36. Discussed making dietary changes, trying to make healthier food choices including portion control. Encourage moderate intensity exercise 30 minutes 5 days per week. She was counseled on the importance of obtaining a healthy weight and the risks of obesity. Weight loss recommended. Start on Emiliano Assessment & Plan (09/25/2021 2:29 PM DRAIN TILER): Continue small frequent meals with goal calorie intake of around 1600. Continue exercise regimen as tolerates. She has a follow-up with physical therapy and nutrition in the upcoming weeks which will help her plan further. We will see her back next month Assessment & Plan (08/27/2021 11:24 AM CDT): Given their past success the patient would be a good candidate for weight loss surgery. We have gone over options such as the bypass and sleeve gastrectomy. We have also discussed risks and benefits such as blood clots, staple line leak as well as new or worsening reflux symptoms. They are in understanding. During this time will have them seen by the dietitian , physical therapy and psych. As we get closer to the time of surgery we will set him up for an EGD to look for hiatal hernia, H pylori or other gastric pathology. We will see them back in 4 weeks. They are in understanding of the plan. We have gone over small frequent meals shooting for a goal calorie intake of around 1600 spread throughout 4-5 meals. We have discussed not eating late at night. We have discussed cardiovascular exercise. I have expressed my concern with worsening reflux as she already does have some issues with heartburn. However she is against bypass surgery at this time. We will see as she loses weight during the process if her symptoms improve as it has done in the past. She does understand the risk of worsening reflux after a sleeve. Greater than 15 minutes was spent in counseling the patient on diet and exercise with regards to her morbid obesity. Morbidly obese 08/27/2021 Migraine 12/29/2019 Vertigo 12/29/2019 Live from [place] 06/27/2011 Overview (03/28/2025): Mother with single liveborn;Practice ID: [id number] Resolved Problems Problem Noted Date Diagnosed Date Resolved Date Systemic lupus erythematosus 08/04/2024 06/26/2025 Screening for thyroid disorder 08/04/2024 10/12/2024 Screening for lipid disorders 08/04/2024 10/12/2024 Need for hepatitis C screening test 08/04/2024 10/12/2024 Establishing care with jama hameed, encounter for 08/03/2024 10/12/2024 Complex tear of medial menis cus of right knee as current injury 08/02/2021 02/26/2023 Assessment & Plan (08/27/2021 11:23 AM CDT): Patient is set to have upcoming repair of this injury. We will see if ortho orders physical therapy after, if not will send this in for her after next visit. Bradycardia 12/29/2019 02/26/2023 Numbness and tingling in both hands 04/14/2023 Encounters Date Type Department Care Team Description 06/27/2025 Results Follow-Up [facility] [address] [place] [address] David Adkins PA CBC with auto differential, Comprehensive metabolic panel 06/26/2025 3:15 PM CDT Office Visit [facility] [address] [place] [address] David Adkins PA Fibromyalgia (Primary Dx); Polyarthralgia; Encounter for long-term (current) use of medications 05/11/2025 10:30 AM CDT Office Visit [facility] at [address] [phone] Debbie Clement, DEZ Nausea and vomiting, unspecified vomiting type (Primary Dx); Encounter for screening mammogram for malignant neoplasm of breast; Class 3 severe obesity due to excess calories with body mass index (BMI) of 50.0 to 59.9 in adult 05/11/2025 Nurse Triage [facility] at [address] [phone] Debbie Clement NP 04/24/2025 10:00 AM CDT Office Visit [facility] at [address] [phone] Nathalie Dudley PA Sunburn of second degree (Primary Dx) 04/24/2025 Nurse Triage [facility] at [address] [phone] Debbie Clement, TRAVEL CLERK 04/19/2025 2:00 PM CDT Office Visit [facility] at [address] [phone] Debbie Clement, TRAVEL CLERK Cellulitis of right upper extremity (Primary Dx); Morbid obesity with BMI of 50.0-59.9, adult (HCC) 04/10/2025 2:18 PM CDT - 04/10/2025 11:59 PM CDT Hospital Encounter [address] [phone] Discharge Disposition: Discharge to home or self care 04/10/[address] [phone] Mohinder Gibbs MD 03/31/2025 2:00 PM CDT Office Visit [facility] Primary [facility] at [address] [place] [phone] Debbie Clement NP Encounter for weight management (Primary Dx); Morbid obesity with BMI of 50.0-59.9, adult ([facility]); Insomnia, unspecified type; Symptoms involving urinary system; Acute cystitis without hematuria; Snores; Chronic diarrhea; Chronic pain of both knees 03/30/2025 Orders Only [address] [phone] Mohinder Gibbs MD 03/30/[address] [phone] Edgar Saldana 03/28/2025 11:00 AM CDT Office Visit [address] [phone] David Adkins PA Polyarthralgia (Primary Dx); Fibromyalgia; Class 3 severe obesity due to excess calories with body mass index (BMI) of 50.0 to 59.9 in adult 03/28/2025 Orders Only [address] [phone] Mohinder Gibbs MD 03/28/[address] [phone] Edgar Saldana from Last 3 Months Immunizations Immunization Administration Dates Next Due DTP 06/10/1989, 6,02/05/1985,12/04,1984 Hep B, Adolescent or Pediatric 07/05/1999,1998 Influenza, Quadrivalent, Rec ombinant, Egg Free, Preservative Free, Intramuscular 11/15/2019 Influenza, Quadrivalent, Spl it, Preservative Free, Intramuscular 09/12/2022 Influenza, Unspecified 01/18/2025(Deferr ed: Patient Refused),12/15/2024(Deferred: Patient Refused),08/08/2024(Deferred: Patient Refused),08/08/2024(Deferred: Patient Refused),08/01/2024(Deferred: Patient Refused),08/10/2023(Deferred: Patient Refused),08/10/2023(Deferred: Patient Refused) MMR 12/29/1991,12/31/1985 OPV 06/10/1989, 6,02/05/1985,12/04,1984 OPV, Unspecified 06/10/1989, 6,02/05/1985,12/04,1984 Td, Adsorbed, Preservative F ree, Adult Use, Lf Unspecified 06/07/1999 Surgical History Surgery Date Site/Laterality Comments HYSTERECTOMY ANKLE SURGERY 11/02/1989 - 11/01/1990 Left TONSILLECTOMY AND ADENOIDECTOMY KNEE SURGERY 09/02/2021 - 10/01/2021 Right Medical History Medical History Date Comments Migraines Family History Medical History Relation Name Comments Arthritis Other Deep vein thrombosis Other Diabetes Other Heart disease Other Hypertension Other Relation Name Status Comments Other Social History Tobacco Use Types Packs/Day Years Used Date Smoking Tobacco: Every Day Vaping Started: 2023 Smokeless Tobacco: Never Tobacco Cessation:Ready to Q uit: Not Asked; Counseling Given: Not Answered AUDIT-C Answer Date Recorded Q1: How often [...] on file Legal Sex Female 3:17 PM DRAIN TILER Gender Identity Not on file Sexual Orientation Not on file Obstetrics History Last Filed Vital Signs Vital Sign Reading Time Taken Comments Blood Pressure 144/82 06/26/2025 3:13 PM CDT Pulse 115 06/26/2025 3:13 PM CDT Temperature 36.8 C (98.2 F) 05/11/2025 10:37 AM CDT Respiratory Rate 18 05/11/2025 10:37 AM CDT Oxygen Saturation 97% 06/26/2025 3:13 PM CDT Inhaled Oxygen Concentration - - Weight 168.3 kg (371 lb) 06/26/2025 3:13 PM CDT Height 175.3 cm (5' 9) 06/26/2025 3:13 PM CDT Body Mass Index 54.79 06/26/2025 3:13 PM CDT Plan of Treatment Health Maintenance Due Date Last Done Comments Breast Cancer Screening-Mammogram 1984 DTaP/Tdap/Td Vaccine (6 - Tdap) 06/08/1999 06/07/1999, 06/10/1989, 05/06/1986, Additional history exists Regular Well Visit/Exam 18-64 2002 Pneumococcal vaccine <65 (1 of 2 - PCV) 2003 Zoster Vaccine (1 of 2) 2003 HPV Vaccines (1 - 3-dose SCDM series) 2011 Influenza Vaccine (#1) 2025 09/12/2022, 2019 Varicella Vaccines (1 of 2 - 13+ 2-dose series) 01/22/2026 Postponed from 1997 (Patient declined, but will receive in the future) Depression Screening 05/11/2026 05/11/2025, 05/11/2025, 08/04/2024 Hepatitis B Screening Completed 07/05/1999, 999 Hepatitis C Screening Completed 08/04/2024 Procedures Procedure Name Priority Date/Time Associated Diagnosis Comments COMPREHENSIVE METABOLIC PANEL Routine 06/26/2025 3:47 PM CDT Fibromyalgia Encounter for long-term (current) use of medications CBC WITH AUTO DIFFERENTIAL Routine 06/26/2025 3:47 PM CDT Fibromyalgia Encounter for long-term (current) use of medications POC INFLUENZA A/B, COVID-19 ANTIGEN Routine 05/11/2025 10:30 AM CDT Nausea and vomiting, unspecified vomiting type SCAN - RADIOLOGY/IMAGING 04/10/2025 2:18 PM CDT POCT URINALYSIS DIPSTICK Routine 03/31/2025 2:33 PM CDT Symptoms involving urinary system HEPATITIS C ANTIBODY Routine 08/04/2024 10:42 AM CDT Need for hepatitis C screening test from Last 3 Months or Most Recently Relevant to Health Maintenance Results * CBC with auto differential (06/26/2025 3:47 PM CDT) WBC 8.6 3.8 - 10.8 Thousand/u L [facility] RBC, POC 4.62 3.80 - 5.10 Million/uL [facility] Hgb 13.4 11.7 - 15.5 g/dL [facility] Hct 41.1 35.0 - 45.0 % [facility] MCV 89.0 80.0 - 100.0 fL [facility] MCH 29.0 27.0 - 33.0 pg [facility] MCHC 32.6 32.0 - 36.0 g/dL [facility] Comment: For adults, a slight decrease in the calculated MCHC value (in the range of 30 to 32 g/dL) is most likely not clinically significant; however, it should be interpreted with caution in correlation with other red cell parameters and the patient's clinical condition. Rdw 13.6 11.0 - 15.0 % [facility] Platelets 306 140 - 400 Thousand/u L [facility] MPV 11.1 7.5 - 12.5 fL [facility] Neutrophils, abs 4,962 1,500 - 7,800 cells/uL [facility] Lymphocytes, abs 2,804 850 - 3,900 cells/uL [facility] Monocyte abs 525 200 - 950 cells/uL [facility] Eosinophils, abs 258 15 - 500 cells/uL [facility] Basophils, abs 52 0 - 200 cells/uL [facility] Neutrophils 57.7 % [facility] Lymphocyte pct 32.6 % [facility] Monocytes 6.1 % [facility] Eosinophils 3.0 % [facility] Basophils 0.6 % [facility] Blood 06/26/2025 3:47 PM CDT 06/26/2025 3:48 PM CDT David RAMOS LAB BLOOD ORDERABLES [facility] Result [facility] [address] [place] [phone] * Comprehensive metabolic panel (06/26/2025 3:47 PM CDT) [facility] Glucose 96 65 - 99 mg/dL [facility] Comment: Fasting reference interval BUN 13 7 - 25 mg/dL [facility] Creatinine 0.82 0.50 - 0.99 mg/dL [facility] eGFR 93 > OR = 60 mL/min/1.7 3m2 [facility] BUN/creat ratio SEE NOTE: 6 - 22 (calc) [facility] Comment: Not Reported: BUN and Creatinine are within reference range. Sodium 139 135 - 146 mmol/L [facility] Potassium, pl 4.4 3.5 - 5.3 mmol/L [facility] Chloride 103 98 - 110 mmol/L [facility] CO2 28 20 - 32 mmol/L [facility] Calcium 9.7 8.6 - 10.2 mg/dL [facility] Protein, sr 7.7 6.1 - 8.1 g/dL [facility] Albumin 4.3 3.6 - 5.1 g/dL [facility] GLOBULIN 3.4 1.9 - 3.7 g/dL (calc) [facility] Alb/glob ratio 1.3 1.0 - 2.5 (calc) [facility] Bilirubin, total 0.6 0.2 - 1.2 mg/dL [facility] Alk phos 82 31 - 125 U/L [facility] AST 23 10 - 30 U/L [facility] ALT (SGPT) 17 6 - 29 U/L [facility] Blood 06/26/2025 3:47 PM CDT 06/26/2025 3:48 PM CDT David RAMOS LAB BLOOD ORDERABLES Fi nal Result [facility] [address] [place] [address] * POC Influenza A/B, COVID-19 antigen (05/11/2025 10:30 AM CDT) [facility] Influenza A Ag, POC Negative Negative [facility] Influenza B Ag, POC Negative Negative [facility] COVID-19 Ag POC Presumptive Negative Presumptive Negative, Invalid PCP [facility] Nasal 05/11/2025 10:3 0 AM CDT Debbie Clement NP POINT OF CARE TEST ORDERABLES Final Result PCP [facility] [address] [place] [phone], [facility] * SCAN - RADIOLOGY/IMAGING (04/10/2025 2:18 PM CDT) Anatomical Region Laterality Modality Ultrasound Provider Scanning Final Result * (ABNORMAL) POCT urinalysis dipstick (03/31/2025 2:33 PM CDT) Color, Urine, POC Dark Yellow Clarity, ur, POC Cloudy(A) Clear Glucose, ur, POC Negative Negative Bilirubin, ur, POC Negative Negative Ketones, ur, POC Negative Negative Specific [place], POC 1.030 1.003 - 1.030 Blood, ur, POC Negative Negative pH, ur, POC 6.0 5.0 - 8.0 Protein, ur, POC Trace(A) Negative Urobilinogen, urine, POC 0.2 0.2 - 1.0 mg/dL Nitrite, ur, POC Positive(A) Negative Leukocytes, ur, POC Negative Negative Lot Number [id number] Urine 03/31/2025 2:33 PM CDT Debbie Clement NP POINT OF CARE TEST ORDERABLES Final Result * Hepatitis C antibody Blood (08/04/2024 10:42 AM CDT) Hep C Ab Nonreactive Nonreactive Comment: Interpretive Data Nonreactive: Antibodies to HCV not detected. Does NOT exclude the possibility of recent exposure to HCV. Equivocal: Equivocal for HCV antibodies. Supplemental molecular testing will be automatically performed to determine infection status in accordance with current CDC screening recommendations. Reactive: Positive for HCV antibodies. This may represent current or past HCV infection. Supplemental molecular testing will be automatically performed to determine current infection status in accordance with current CDC screening recommendations. Interpretive data was last revised on 2020. Blood 08/04/2024 10:4 2 AM CDT 08/04/2024 7:19 PM CDT us Debbie Clement NP LAB MICROBIOLOGY - GENERAL OR DERABLES Final Result [facility] [id number] [place] [address] from Last 3 Months or Most Recently Relevant to Health Maintenance Insurance [facility] PPO [facility] Care Teams Vocational Rehabilitation Teacher Relationship Specialty Start Date End Date Debbie Clement NP [address] [place] [address] PCP - General Family Medicine 06/14/24 Ildefonso Block MD [address] [place] [address] DR EDY Valencia [facility] [address] [place] [address] Surgeon Orthopedic Surgery 09/02/21
--- OUTSIDE RECORDS SUMMARY | 2025-06-28 09:29 | XMS_ITS | Encounter Summary ---
Author Organization [facility] Address [address] [facility] [place] [address] Phone Care Team Providers Care Mixing Machine Tender Name Role Phone Federico Marti MD Primary Care Provider [phone] Reason for Visit * Reason Comments Medication Refill Encounter Details Date Type Department Care Team (Late st Contact Info) Description 01/08/2023 Refill [facility] - Family Medicine [facility] [address] [place] [address] Federico Marti MD [address] [place] [address] Medication Refill Social History Tobacco Use Types [...] on file documented as of this encounter Miscellaneous Notes * Telephone Encounter - Diamond Song RN - 01/08/2023 2:37 PM CST Medication failed the protocol, provider to review and approve the medication order if appropriate. Requested Prescriptions Pending Prescriptions Disp Refills gabapentin (NEURONTIN) 100 MG Capsule [Pharmacy Med Name: GABAPENTIN 100 MG CAPSULE] 90 Capsule 1 Sig: TAKE 1 CAPSULE BY MOUTH THREE TIMES A DAY Not Delegated - Anticonvulsants Excluding Benzodiazepines Protocol Failed - 01/08/2023 1:11 PM Failed - This refill cannot be delegated Passed - Visit with relevant provider in past 12 months or upcoming 90 days Recent Visits Date Type Provider Dept 10/23/22 Office Visit Federico Marti MD [facility] 09/12/22 Office Visit Federico Marti MD [facility] 08/19/22 Office Visit Federico Marti MD [facility] Showing recent visits within past 365 days and meeting all other requirements Future Appointments Date Type Provider Dept 02/05/23 Appointment Federico Marti MD [facility] Showing future appointments within next 90 days and meeting all other requirements EOPTIC PROJECTION TOPOGRAPHER documented in this encounter Plan of Treatment Not on file documented as of this encounter Visit Diagnoses Diagnosis Pain in unspecified joint Pain, unspecified documented in this encounter Additional Health Concerns Infection Onset Date Last Indicated Resolved Time COVID - 19 02/14/2023 02/14/2023 02/24/2023 12:1 6 AM CDT COVID - 19 08/24/2023 08/24/2023 09/03/2023 12:1 9 AM CDT COVID - 19 Confirmed 08/24/2023 08/24/2023 023 12:17 AM STEREOPTIC PROJECTION TOPOGRAPHER Respiratory Rule-Out 03/02/2024 03/02/2024 024 2:22 PM CDT COVID - 19 03/02/2024 03/02/2024 03/02/2024 2:22 PM CDT documented as of this encounter Care Teams Mixing Machine Tender Relationship Specialty Start Date End Date Federico Marti MD [address] [place] [address] PCP - General Family Medicine 08/19/22 04/25/25 documented as of this encounter
--- OUTSIDE RECORDS SUMMARY | 2025-06-28 09:29 | XMS_ITS | Clinical Summary ---
Author Organization [facility] [employer] Address [address] [facility] [place] [address] Care Team Providers Care Apprentice Stylist Name Role Phone Deb Ward MD Unavailable [phone] Debbie Clement AIR SUPPORT OPERATIONS OPERATOR-TUNNEL WORKER Primary Care Provider + Source Comments [facility],non-owned Affiliates and Associated Physician Practices is amultiple site organization consisting of ambulatory clinics and hospital sitesin [place], [place], [place] and [place]. This disclosure is being madepursuant to the Care Everywhere program and may not contain all information available regarding this patient. Last updated 18.[facility] Allergies Active Allergy Reactions Criticality Noted Date Comments Penicillins Urticaria Medium 12/29/2019 Medications * Be aware that medications may not be up to date on this document. Alwaysverify current medications with the patient. albuterol HFA (Proventil; Ventolin; Proair) 108 (90 Base) MCG/ACT inhaler Inhale 2 (two) puffs by mouth every 6 hours as needed 01/16/2024 Active ALPRAZolam (Xanax) 0.5 MG tablet Take 1 (one) tablet by mouth at bedtime Active prochlorperazin e (Compazine) 10 MG tablet Take 1 (one) tablet by mouth once Active Multiple Vitamins-Minera ls (One Daily Calcium/Iron) TABS Take 1 (one) tablet by mouth once daily Active Cholecalciferol (Vitamin D3) 25 MCG (1000 UT) Take 1 (one) capsule by mouth once daily Active predniSONE (Deltasone) 5 MG tablet Take 1 (one) tablet by mouth once daily 90 tablet 09/26/2024 Active DULoxetine (Cymbalta) 30 MG capsule TAKE 1 CAPSULE BY MOUTH DAILY 30 capsule 2 09/28/2024 Active ondansetron, disintegrating, (Zofran ODT) 4 MG tablet Take 1 (one) tablet by mouth once daily as needed for Nausea/Vomiti ng Allow tablet to dissolve on the tongue 30 tablet 11/29/2024 Active hydroxychloroqu ine (Plaquenil) 200 MG tablet TAKE 1 TABLET BY MOUTH TWICE DAILY 180 tablet 1 12/15/2024 Active pregabalin (Lyrica) 50 MG capsule 100mg BID 120 capsule 01/17/2025 Active vitamin D, ergocalciferol, (Drisdol) 1.25 MG (84869 UT) capsuleIndicati ons:Immunosuppr essed status (HCC),Vitamin D deficiency TAKE 1 CAPSULE BY MOUTH EVERY 7 DAYS 12 capsule 01/18/2025 Active Active Problems No known active problems Encounters Date Type Department Care Team Description 05/04/2025 Refill [facility] - Rheumatology [address] [place] [id number] Deb Ward MD Refill Request from Last 3 Months Immunizations Immunization Administration Dates Next Due DTP 06/10/1989, 6,02/05/1985,1984,1984 HEP B VACCINE, PED/ADOL 07/05/1999,06/07/1999 INFLUENZA VACCINE 09/12/2022 MMR 12/29/1991,12/31/1985 POLIO OPV 06/10/1989, 6,02/05/1985,1984,1984 TD (AGE 7-ADULT) 06/07/1999 iNFLUENZA VACCINE, RECOM-SANCHEZ, QUADR. (FLUBLOCK QUADRIVALENT; 18Y+) (RIV4) 11/15/2019 Social History Tobacco Use Types Packs/Day Years Used Date Smoking Tobacco: Never Smokeless Tobacco: Never Tobacco Cessation:Counseling Given: Not Answered PHQ-2 Answer Date Recorded Patient Health Questionnaire-2 Score 0 08/01/2024 Comments Unknown Sex and Gender Information Value Date Recorded Sex Assigned at Not on file Legal Sex Female 8:45 AM CDT Gender Identity Not on file Sexual Orientation Not on file Last Filed Vital Signs Vital Sign Reading Time Taken Comments Blood Pressure 118/78 12/05/2024 8:27 AM BRAKE MECHANIC Pulse 94 12/05/2024 8:27 AM BRAKE MECHANIC Temperature - - Respiratory Rate 18 12/05/2024 8:27 AM BRAKE MECHANIC Oxygen Saturation 98% 12/05/2024 8:27 AM BRAKE MECHANIC Inhaled Oxygen Concentration - - Weight 160.9 kg (354 lb 12.8 oz) 12/05/2024 8:27 AM BRAKE MECHANIC Height 175.3 cm (5' 9) 12/05/2024 8:27 AM BRAKE MECHANIC Body Mass Index 52.39 12/05/2024 8:27 AM BRAKE MECHANIC Plan of Treatment Health Maintenance Due Date Last Done Comments LIPID TESTING 1984 MAMMOGRAM 1984 COVID-19 VACCINE (#1) 1989 HIV SCREENING 1999 HEPATITIS B VACCINE (3 of 3 - 3-dose series) 09/27/1999 07/05/1999, 06/07/1999 PNEUMOCOCCAL VACCINE (1 of 2 - PCV) 2003 ZOSTER VACCINE (1 of 2) 2003 PAP SMEAR 2005 DTAP/TDAP/TD VACCINES (7 - Td or Tdap) 06/07/2009 06/07/1999, 06/10/1989, 05/06/1986, Additional history exists HPV VACCINE (1 - 3-dose SCDM series) 2011 DEPRESSION SCREENING 11/02/2024 08/01/2024 INFLUENZA VACCINE (#1) 2025 09/12/2022, 2019 SCREENING FOR DIABETES 11/03/2027 , 08/01/2024, 02/11/2024, Additional history exists HEPATITIS C SCREENING Completed 02/11/2024, 022 HIB VACCINE Aged Out No longer eligi ble based on patient's age to complete this topic MENINGOCOCCAL (Group B) VACCINE SHARED DECISION-MAKING Aged Out No longer eligible based on patient's age to complete this topic MENINGOCOCCAL GROUPS A/C/Y/W VACCINE Aged Out No longer eligible based on patient's age to complete this topic Procedures Procedure Name Priority Date/Time Associated Diagnosis Comments COMPREHENSIVE METABOLIC PANEL Routine 11/03/2024 2:55 PM BRAKE MECHANIC Systemic lupus erythematosus, unspecified SLE type, unspecified organ involvement status HEPATITIS SCREEN ACUTE ([facility]) Routine 02/11/2024 12:07 PM CDT Systemic lupus erythematosus, unspecified SLE type, unspecified organ involvement status Polyarthralgia Vitamin D deficiency Lassitude from Last 3 Months or Most Recently Relevant to Health Maintenance Results * COMPREHENSIVE METABOLIC PANEL (11/03/2024 2:55 PM BRAKE MECHANIC) Pathologist [facility] Glucose 99 70 - 99 mg/dL [facility] ACCOUNT BILL BUN 11 6 - 24 mg/dL [facility] ACCOUNT BILL Creatinine 0.99 0.57 - 1.00 mg/dL [facility] ACCOUNT BILL eGFR by CKD-EPI 74 >59 mL/min/1.7 3 [facility] ACCOUNT BILL BUN/Creatinine Ratio 11 9 - 23 [facility] ACCOUNT BILL Sodium 141 134 - 144 mmol/L [facility] ACCOUNT BILL Potassium 4.3 3.5 - 5.2 mmol/L [facility] ACCOUNT BILL Chloride 105 96 - 106 mmol/L [facility] ACCOUNT BILL CO2 25 20 - 29 mmol/L [facility] ACCOUNT BILL Calcium 9.4 8.7 - 10.2 mg/dL [facility] ACCOUNT BILL Protein Total 7.3 6.0 - 8.5 g/dL [facility] ACCOUNT BILL Albumin 4.3 3.9 - 4.9 g/dL [facility] ACCOUNT BILL Globulin Total 3.0 1.5 - 4.5 g/dL [facility] ACCOUNT BILL Bilirubin Total 0.6 0.0 - 1.2 mg/dL [facility] ACCOUNT BILL Alkaline Phosphatase 91 44 - 121 IU/L [facility] ACCOUNT BILL AST 21 0 - 40 IU/L [facility] ACCOUNT BILL ALT 11 0 - 32 IU/L [facility] ACCOUNT BILL Blood BLOOD SPECIMEN / Unknown 11/03/2024 2:55 PM BRAKE MECHANIC 11/03/2024 Narrative [facility] ACCOUNT BILL - 11/04/2024 7:08 AM BRAKE MECHANIC Performed at: [address] - [address] [id number] Formwork Carpenter: Jackson Villarreal PhD, Phone: [phone] Deb Ward MD LAB - CHEMISTRY ORDERABLES Le l Result [facility] ACCOUNT BILL [address] [place] [address] * HEPATITIS SCREEN ACUTE ([facility]) (02/11/2024 12:07 PM CDT) Hepatitis A Virus Antibody IgM Negative Negative [facility] ACCOUNT BILL Hepatitis B Virus Surface Antigen Negative Negative [facility] ACCOUNT BILL Hepatitis B Core Virus Antibody IgM Negative Negative [facility] ACCOUNT BILL Hepatitis C Antibody Non Reactive Non Reactive [facility] ACCOUNT BILL Blood BLOOD SPECIMEN / Unknown 02/11/2024 12:07 PM CDT 02/11/2024 Narrative Resulting Agency Comment Lab Testing performed at: [facility] [id number] Deb Ward MD LAB - CHEMISTRY ORDERABLES Le l Result Performing Organization Address City/[facility] Co de Phone Number [facility] ACCOUNT BILL [address] [place] [address] from Last 3 Months or Most Recently Relevant to Health Maintenance Insurance MEDICAID - OUT OF STATE Care Teams Apprentice Stylist Relationship Specialty Start Date End Date Debbie Clement, AIR SUPPORT OPERATIONS OPERATOR-TUNNEL WORKER [address] [place] [address] PCP - General Nurse Practitioner 12/05/24 [place] [id number] [phone] Rheumatology 08/01/24
--- OUTSIDE RECORDS SUMMARY | 2025-06-28 09:29 | XMS_ITS | Encounter Summary ---
Author Organization [facility] Address [address] [place] [address] Phone Care Team Providers Care Material Preparation Worker Name Role Phone Federico Marti MD Primary Care Provider [phone] Reason for Visit * Reason Onset Date Comments Appointment 01/08/2023 Med check Encounter Details Date Type Department Care Team (Late st Contact Info) Description 01/08/2023 Telephone [facility] [address] [place] [address] Federico Marti MD [address] [place] [address] Appointment (Med check) Social History Tobacco Use Types Packs/Day Years [...] encounter Miscellaneous Notes * Telephone Encounter - Chica Jesus - 01/08/2023 1:21 PM CST Situation: Patient is calling to schedule an appointment Background: (type of appointment needed) Med check Action: appointment scheduled for : 02/05/2023 Response: routed to provider to notify ETEER documented in this encounter Plan of Treatment Not on file documented as of this encounter Visit Diagnoses Not on filedocumented in this encounter Additional Health Concerns Infection Onset Date Last Indicated Resolved Time COVID - 19 02/14/2023 02/14/2023 02/24/2023 12:1 6 AM CDT COVID - 19 08/24/2023 08/24/2023 09/03/2023 12:1 9 AM CDT COVID - 19 Confirmed 08/24/2023 08/24/2023 023 12:17 AM TARGETEER Respiratory Rule-Out 03/02/2024 03/02/2024 024 2:22 PM CDT COVID - 19 03/02/2024 03/02/2024 03/02/2024 2:22 PM CDT documented as of this encounter Care Teams Material Preparation Worker Relationship Specialty Start Date End Date Federico Marti MD [address] [place] [address] PCP - General Family Medicine 08/19/22 04/25/25 documented as of this encounter
--- OUTSIDE RECORDS SUMMARY | 2025-06-28 09:29 | XMS_ITS | Encounter Summary ---
Author Organization [facility] Address [address] [facility] [place] [address] Phone Care Team Providers Care Employee Communications Coordinator Name Role Phone Federico Marti MD Primary Care Provider [phone] Reason for Visit * Reason Comments Medication Refill Encounter Details Date Type Department Care Team (Late st Contact Info) Description 10/18/2022 Refill [facility] - Family [facility] [address] [place] [address] Federico Marti MD [address] [place] [address] Medication Refill Social History Tobacco Use Types Packs/Day Years Used Date Smoking Tobacco: Never Smokeless Tobacco: Never Alcohol Use Standard Drinks/Week Comments Not Currently 0 (1 standard drink = 0.6 oz pur e alcohol) Sexually Active Control Partners Comments Yes Comments No Sex and Gender Information Value Date Recorded Sex Assigned at Not on file Legal Sex Female 10:40 PM CDT Gender Identity Not on file Sexual Orientation Not on file COVID-19 Exposure Response Date Recorded In the last 10 days, have yo u been in contact with someone who was confirmed or suspected to have Coronavirus/COVID-19? No / Unsure 09/23/2022 8:07 AM MED SPEC documented as of this encounter Miscellaneous Notes * Telephone Encounter - Maria A Biswas RN - 10/20/2022 8:14 AM MED SPEC Medication failed the protocol, provider to review and approve the medication order if appropriate. Requested Prescriptions Pending Prescriptions Disp Refills gabapentin (NEURONTIN) 100 MG Capsule [Pharmacy Med Name: GABAPENTIN 100 MG CAPSULE] 90 Capsule 0 Sig: TAKE 1 CAPSULE BY MOUTH THREE TIMES A DAY Not Delegated - Anticonvulsants Excluding Benzodiazepines Protocol Failed - 10/18/2022 10:28 AM Failed - This refill cannot be delegated Passed - Visit with relevant provider in past 12 months or upcoming 90 days Recent Visits Date Type Provider Dept 09/12/22 Office Visit Federico Marti MD [facility] 08/19/22 Office Visit Federico Marti MD [facility] Showing recent visits within past 365 days and meeting all other requirements Future Appointments No visits were found meeting these conditions. Showing future appointments within next 90 days and meeting all other requirements SPEC documented in this encounter Plan of Treatment Not on file documented as of this encounter Visit Diagnoses Diagnosis Chronic joint pain Pain in joint, site unspecified Burning pain Generalized pain documented in this encounter Additional Health Concerns Infection Onset Date Last Indicated Resolved Time COVID - 19 02/14/2023 02/14/2023 02/24/2023 12:1 6 AM CDT COVID - 19 08/24/2023 08/24/2023 09/03/2023 12:1 9 AM CDT COVID - 19 Confirmed 08/24/2023 08/24/2023 023 12:17 AM MED SPEC Respiratory Rule-Out 03/02/2024 03/02/2024 024 2:22 PM CDT COVID - 19 03/02/2024 03/02/2024 03/02/2024 2:22 PM CDT documented as of this encounter Care Teams Employee Communications Coordinator Relationship Specialty Start Date End Date Federico Marti MD [address] [place] [address] PCP - General Family Medicine 08/19/22 04/25/25 documented as of this encounter
[2025-06-28] MEDS: HYDROcodone/acetaminophen (*CRX) 5-325 MG TABLET 1 TAB PO (09:54)
--- NOTE | 2025-06-28 10:07 | ED.LOWEXIN ---
HPI - Extremity Injury (Lower) General Chief Complaint: Extremity Injury, Lower Stated Complaint: fall, injured right ankle pain Time Seen by Provider: 06/28/25 09:30 Source: patient Mode of arrival: ambulatory Limitations: no limitations History of Present Illness HPI Narrative: Patient is a 39-year-old female who presents the ED with report of right ankle pain. Patient reports he tripped walking down the stairs and rolled her right ankle, inversion injury. She states she heard a snap in her right ankle. She was unable to bear weight afterwards. Complains of pain and swelling to right lateral ankle. Denies any other injuries. Denies numbness. Related Data Home Medications ?Medication ?Instructions ?Recorded ?Confirmed ?Last Taken ?Type alprazolam 0.5 mg tablet 0.5 mg PO BID PRN Anxiety 02/15/21 02/27/21 02/27/21 05:00 History Allergies Allergy/AdvReac Type Severity Reaction Status Date / Time Penicillins AdvReac Mild RASH ON Verified 06/28/25 09:26 CHEST/NECK Review of Systems Review of Systems: All systems reviewed & are unremarkable except as noted in HPI. All systems reviewed & are unremarkable except as noted in HPI and below PMFSH Past Medical History Medical History Anxiety Migraine Morbid obesity with BMI of 45.0-49.9, adult Social History Social History Years smoked: 10 Smoking status: Former smoker Alcohol intake: current Alcohol use details: 1/MONTH Substance use: current Substance use type: marijuana Other substance usage details: EDIBLES Last use: 02/14/21 Living arrangements: with family Spiritual care concerns: No Exam Narrative: GENERAL: Well appearing, morbidly obese with 53 point, non-toxic, in no acute distress. HEAD: Normocephalic, atraumatic. RESPIRATORY: Airway patent, respirations nonlabored. CARDIOVASCULAR: Regular rate and rhythm. Pedal pulses intact and easily palpable MUSCULOSKELETAL: No gross deformities. Limited range of motion of right ankle due to pain. Swelling to right lateral malleoli with focal tenderness along inferior posterior aspects. Sensation intact. Able to wiggle toes. SKIN: Warm, dry, normal color. NEURO: A&O X3. Speech clear. No ataxic movements. PSYCHIATRIC: Appropriate mood and affect. Normal interaction. Course Vital Signs Vital signs: Vital Signs Temperature 98.1 F 06/28/25 09:23 Pulse Rate 87 06/28/25 09:23 Respiratory Rate 20 06/28/25 09:23 Blood Pressure 133/80 06/28/25 09:23 Pulse Oximetry 99 06/28/25 09:23 Oxygen Delivery Room Air 06/28/25 09:23 Temperature 98.1 F 06/28/25 09:23 Pulse Rate 87 06/28/25 09:23 Respiratory Rate 20 06/28/25 09:23 Blood Pressure 133/80 06/28/25 09:23 Pulse Oximetry 99 06/28/25 09:23 Oxygen Delivery Room Air 06/28/25 09:23 MDM - Extremity Injury (Lower) MDM Narrative Medical decision making narrative: Patient?s injury is consistent with musculoskeletal etiology. No signs of neurologic or vascular compromise on physical examination. Compartments are soft without signs of compartment syndrome. XR of right ankle showing acute avulsion fracture of distal aspect of fibula, possible additional avulsion fracture of indeterminate age of distal right tibia. Consider CT. Discussed case with Dr. Mcgee, orthopedics, agrees w/ plan for CT, splint here today, and f/u in office. Patient updated on imaging findings, need for close follow-up with Orthopedics. Will send pain medication pharmacy. Discussed rice therapy, strict return precautions. Discharged in stable condition. Medical Records Attestation: I reviewed the patient's medical records. Imaging Data Attestation: I personally reviewed and interpreted this imaging study as follows: Radiologist's impression: ITS Impressions Ankle X-Ray 06/28/25 09:52 IMPRESSION: 1. Tiny acute avulsion fracture of the distal aspect of the lateral malleolus with adjacent soft tissue swelling. 2. There is a 6 mm ossific density along the anterior aspect of the distal right tibia about the tibiotalar joint seen in the lateral projection. Differential includes osteophyte or avulsion fracture of indeterminate age. Correlate for point tenderness. Consider a CT or MRI for further assessment. Discharge Plan Discharge Clinical Impression: Closed avulsion fracture of distal end of fibula, Fall from ground level Patient Disposition: Home Condition: Stable Instructions: Antibiotic Form, Ankle Fracture (ED), Splint Care (ED), P.R.I.C.E. Treatment (ED) Additional Instructions: Call orthopedic office today to make follow-up appointment. Wear splint until seen by orthopedics. Use crutches for assistance with walking. Avoid weight-bearing until seen by orthopedics. Continue Tylenol and Ibuprofen as needed for pain. [place] as needed for more severe pain. Recommend frequent elevation of leg, frequent icing to ankle. Return to the ED if you experience worsening or severe pain, recurrent injury, numbness, or any other symptoms of concern. Patient Language: Belarusian Prescriptions: New hydrocodone-acetaminophen 5-325 mg tablet 1 tablet PO Q6H PRN (Reason: pain) Qty: 20 0RF No Action alprazolam 0.5 mg tablet 0.5 mg PO BID PRN (Reason: Anxiety) hydrocodone-acetaminophen 5-325 mg tablet 1 - 2 tablet PO Q4H PRN (Reason: pain) Qty: 25 0RF Follow-up/Referrals: Pa Mcgee MD [Physician, Orthopedics] Referral Note: ORTHOPEDICS UNKNOWN,DOCTOR [Primary Care Provider] Time of Disposition: 10:12
--- OUTSIDE RECORDS SUMMARY | 2025-06-28 10:56 | XMS_ITS | Encounter Summary ---
Author Organization [facility] Address [address] [place] [address] Phone Care Team Providers Care Energy Advisor Name Role Phone Ildefonso Block MD Unavailable [phone] Debbie Clement NP Primary Care Provider [phone] Encounter Details Date Type Department Care Team (Latest Contact Info) Description 06/27/2025 Results Follow-Up [facility] [address] [place] [address] David Adkins PA [address] [place] [address] CBC with auto differential, Comprehensive [...] on file Legal Sex Female 3:17 PM ESTIMATOR JEWELRY Gender Identity Not on file Sexual Orientation Not on file documented as of this encounter Plan of Treatment Not on file documented as of this encounter Visit Diagnoses Not on filedocumented in this encounter Care Teams Energy Advisor Relationship Specialty Start Date End Date Debbie Clement NP [address] [facility] [address] [place] [address] PCP - General Family Medicine 06/14/24 Ildefonso Block MD [address] [place] [address] [address] [facility] [address] [place] [address] Surgeon Orthopedic Surgery 09/02/21 documented as of this encounter
--- OUTSIDE RECORDS SUMMARY | 2025-06-28 10:56 | XMS_ITS | Clinical Summary ---
Author Organization [facility] [employer] Address [address] [place] [address] Care Team Providers Care Retail Furniture Sales Name Role Phone Deb Ward MD Unavailable [phone] Debbie Clement RENEWABLE ENERGY DIVISION MANAGER-BUILDING ENERGY RETROFIT TECHNICIAN Primary Care Provider + Source Comments [facility],non-owned Affiliates and Associated Physician Practices is amultiple site organization consisting of ambulatory clinics and hospital sitesin [place], [place], [place] and [place]. This disclosure is being madepursuant to the Care Everywhere program and may not contain all information available regarding this patient. Last updated 18.[facility] Allergies Active Allergy Reactions Criticality Noted Date [...] Active vitamin D, ergocalciferol, (Drisdol) 1.25 MG (87891 UT) capsuleIndicati ons:Immunosuppr essed status (HCC),Vitamin D deficiency TAKE 1 CAPSULE BY MOUTH EVERY 7 DAYS 12 capsule 01/18/2025 Active Active Problems No known active problems Encounters Date Type Department Care Team Description 05/04/2025 Refill [facility] - Rheumatology [address] [place] [id number] Deb Ward MD Refill Request from Last [...] Comments Blood Pressure 118/78 12/05/2024 8:27 AM AIRCRAFT ENGINE MECHANIC OVERHAUL Pulse 94 12/05/2024 8:27 AM AIRCRAFT ENGINE MECHANIC OVERHAUL Temperature - - Respiratory Rate 18 12/05/2024 8:27 AM AIRCRAFT ENGINE MECHANIC OVERHAUL Oxygen Saturation 98% 12/05/2024 8:27 AM AIRCRAFT ENGINE MECHANIC OVERHAUL Inhaled Oxygen Concentration - - Weight 160.9 kg (354 lb 12.8 oz) 12/05/2024 8:27 AM AIRCRAFT ENGINE MECHANIC OVERHAUL Height 175.3 cm (5' 9) 12/05/2024 8:27 AM AIRCRAFT ENGINE MECHANIC OVERHAUL Body Mass Index 52.39 12/05/2024 8:27 AM AIRCRAFT ENGINE MECHANIC OVERHAUL Plan of Treatment Health Maintenance Due Date [...] COMPREHENSIVE METABOLIC PANEL Routine 11/03/2024 2:55 PM AIRCRAFT ENGINE MECHANIC OVERHAUL Systemic lupus erythematosus, unspecified SLE type, unspecified organ involvement status HEPATITIS SCREEN ACUTE ([facility]) Routine 02/11/2024 12:07 PM CDT Systemic lupus erythematosus, unspecified SLE type, unspecified organ involvement status Polyarthralgia Vitamin D deficiency Lassitude from Last 3 Months or Most Recently Relevant to Health Maintenance Results * COMPREHENSIVE METABOLIC PANEL (11/03/2024 2:55 PM AIRCRAFT ENGINE MECHANIC OVERHAUL) Pathologist [facility] Glucose 99 70 - 99 mg/dL [facility] [...] BLOOD SPECIMEN / Unknown 11/03/2024 2:55 PM AIRCRAFT ENGINE MECHANIC OVERHAUL 11/03/2024 Narrative [facility] ACCOUNT BILL - 11/04/2024 7:08 AM AIRCRAFT ENGINE MECHANIC OVERHAUL Performed at: 01 - [address] [id number] Client Services Assistant: Jackson Villarreal PhD, Phone: [phone] Deb Ward MD LAB - CHEMISTRY ORDERABLES Le l Result [facility] ACCOUNT BILL [address] [place] [address] * HEPATITIS SCREEN ACUTE ([facility]) (02/11/2024 12:07 [...] Resulting Agency Comment Lab Testing performed at: [facility] [id number] Deb Ward MD LAB - CHEMISTRY ORDERABLES Le l Result Performing Organization Address City/[facility] Co de Phone Number [facility] ACCOUNT BILL [address] [place] [address] from Last 3 Months or Most Recently Relevant to Health Maintenance Insurance MEDICAID - OUT OF STATE Care Teams Retail Furniture Sales Relationship Specialty Start Date End Date Debbie Clement, RENEWABLE ENERGY DIVISION MANAGER-BUILDING ENERGY RETROFIT TECHNICIAN [address] [place] [address] PCP - General Nurse Practitioner 12/05/24 [place] [address] [phone] Rheumatology 08/01/24
--- OUTSIDE RECORDS SUMMARY | 2025-06-28 10:56 | XMS_ITS | Encounter Summary ---
Author Organization [facility] Address [address] [place] [address] Phone Care Team Providers Care Crab Fisher Name Role Phone Federico Marti MD Primary Care Provider [phone] Reason for Visit * Reason Comments Medication Refill Encounter Details Date Type Department Care Team (Late st Contact Info) Description 03/16/2023 Refill [facility] - Family [facility] [address] [place] [address] Federico Marti MD [address] [place] [address] Medication Refill Social History Tobacco Use Types [...] Provider Dept 02/18/23 Office Visit Janeth Celeste, PUBLICATIONS MANAGER, COIN PURSE FRAMER [facility] 10/23/22 Office Visit Federico Marti MD [facility] 09/12/22 Office Visit Federico Marti MD [facility] 08/19/22 Office Visit Federico Marti MD [facility] Showing recent visits within past [...] 19 Confirmed 08/24/2023 08/24/2023 023 12:17 AM PARTS COUNTERPERSON Respiratory Rule-Out 03/02/2024 03/02/2024 024 2:22 PM CDT COVID - 19 03/02/2024 03/02/2024 03/02/2024 2:22 PM CDT documented as of this encounter Care Teams Crab Fisher Relationship Specialty Start Date End Date Federico Marti MD [address] [place] [address] PCP - General Family Medicine 08/19/22 04/25/25 documented as of this encounter
--- OUTSIDE RECORDS SUMMARY | 2025-06-28 10:56 | XMS_ITS | Encounter Summary ---
Author Organization [facility] Address [address] [facility] [place] [address] Phone Care Team Providers Care Dividend Deposit Voucher Clerk Name Role Phone Federico Marti MD Primary Care Provider [phone] Reason for Visit * Reason Comments Medication Refill Encounter Details Date Type Department Care Team (Late st Contact Info) Description 10/18/[address] [facility] - Family [facility] [address] [place] [address] Federico Marti MD [address] [place] [address] Medication Refill Social History Tobacco Use Types [...] Coronavirus/COVID-19? No / Unsure 09/23/2022 8:07 AM TECHNICAL SOLUTIONS CONSULTANT documented as of this encounter Miscellaneous Notes * Telephone Encounter - Maria A Biswas RN - 10/20/2022 8:14 AM TECHNICAL SOLUTIONS CONSULTANT Medication failed the protocol, provider to review [...] 90 days and meeting all other requirements NICAL SOLUTIONS CONSULTANT documented in this encounter Plan of Treatment [...] 19 Confirmed 08/24/2023 08/24/2023 023 12:17 AM TECHNICAL SOLUTIONS CONSULTANT Respiratory Rule-Out 03/02/2024 03/02/2024 024 2:22 PM CDT COVID - 19 03/02/2024 03/02/2024 03/02/2024 2:22 PM CDT documented as of this encounter Care Teams Dividend Deposit Voucher Clerk Relationship Specialty Start Date End Date Federico Marti MD [address] [place] [address] PCP - General Family Medicine 08/19/22 04/25/25 documented as of this encounter
--- OUTSIDE RECORDS SUMMARY | 2025-06-28 10:56 | XMS_ITS | Clinical Summary ---
Author Organization [facility] Address [address] [place] [address] Phone Care Team Providers Care Financial Reporting Director Name Role Phone Unavailable Primary Care Provider [...] 1 Aisha Thyroid Disease Maternal Aunt 1 Aihsa Diabetes Maternal Aunt 2 Brenda Diabetes Maternal Grandfather Jesus Heart Attack Maternal Grandfather Jesus Hypertension Maternal Grandfather Jesus Diabetes Maternal Grandmother Armando Diabetes Maternal Uncle 1 Sammy Diabetes Maternal Uncle 2 Jeff Diabetes Mother Najma Migraines Mother Najma Rheumatoid Arthritis Mother Najma Congestive Heart Failure Paternal Grandfather Horace Diabetes Paternal Grandfather Horace Heart Attack Paternal Grandfather Horace Diabetes Paternal Grandmother iVdhya Congestive Heart Failure Paternal Uncle 1 Horace [...] drink = 0.6 oz pur e alcohol) [facility] Utilities Answer Date Recorded In the past 12 months has e electric, gas, oil, or water [employer] threatened to shut off services in your home? Patient declined 03/02/2024 Social Connection and Isolation Panel Answer Date Recorded In a typical week, how many times do you talk on the phone with family, friends, or neighbors? Patient declined 03/02/2024 How often do you get togethe r with friends or relatives? Patient declined 03/02/2024 How often do you attend anabaptism or pentecostal serv ices? Patient declined 03/02/2024 Do you belong to any clubs o r organizations such as anabaptism groups, unions, fraternal or athletic groups, or [...] Total Score - Questions 1-9 0 12/04 [facility] - Occupational Stress [...] place to sleep or slept in a jail (including now)? Patient declined 03/02/2024 Sexually Active [...] A IGM ANTIBODY NON DETECTED NON DETECTED [facility] ARCH [id number] B 08/19/2022 3:40 PM CDT [facility] Comment: IGM Antibodies to HAV not detected. Does not exclude early acute or recovered HAV infection. HEP B CORE AB (IGM) NON DETECTED NON DETECTED [facility] ARCH [id number] B 08/19/2022 3:40 PM CDT [facility] Comment:IGM anti-HBC not det ected. Does not exclude the possibility of exposure to or infection with HBV. HEPATITIS B SURFACE ANTIGEN NON DETECTED NON DETECTED [facility] ARCH [id number] B 08/19/2022 3:40 PM CDT [facility] Comment:A nonreactive test r esult does not exclude the possibility of exposure to or infection with Hepatitis B virus. A nonreactive test result in individuals with prior exposure to hepatitis B may be due to antigen levels below the detection limit of this assay or lack of antigen reactivity to the antibodies in this assay. hepatitis C antibody 0.17 <1 S/CO [facility] ARCH [id number] B 08/19/2022 3:40 PM CDT [facility] Comment: Signal/Cutoff ratio < 0.79 is Nondetected Signal/Cutoff ratio 0.80-0.99 is Grayzone Signal/Cutoff ratio > 0.99 is Detected Supplemental assays are recommended if signal/cutoff ratio is >/=1.00. Signal/cutoff ratio result >/= 5.00 is 97% predictive of positivity for recombinant immunoblot assay (RIBA) and will be reported to the [place] Department of Public Health as required. Blood Venipuncture / Unknown 08/19/2022 9:32 AM CDT 08/19/2022 9:58 AM CDT us Federico Marti MD HEMATOLOGY ORDERABLES Final Resu lt [facility] [address] [place] [address], [place] from Last 3 Months or Most Recently Relevant to Health Maintenance Insurance MED[place]ID [place] [id number] [facility]
--- OUTSIDE RECORDS SUMMARY | 2025-06-28 10:56 | XMS_ITS | Encounter Summary ---
Author Organization [facility] Address [address] [place] [place] [address] Phone Care Team Providers Care Dope Worker Name Role Phone Federico Marti MD Primary Care Provider [phone] Reason for Visit * Reason Onset Date Comments Appointment 01/08/2023 Med check Encounter Details Date Type Department Care Team (Late st Contact Info) Description 01/08/2023 Telephone [facility] [address] [place] [address] Federico Marti MD [address] [place] [address] Appointment (Med check) Social History [...] 02/05/2023 Response: routed to provider to notify STOCK FARMWORKER documented in this encounter Plan of Treatment Not on file documented as of this encounter Visit Diagnoses Not on filedocumented in this encounter Additional Health Concerns Infection Onset Date Last Indicated Resolved Time COVID - 19 02/14/2023 02/14/2023 02/24/2023 12:1 6 AM CDT COVID - 19 08/24/2023 08/24/2023 09/03/2023 12:1 9 AM CDT COVID - 19 Confirmed 08/24/2023 08/24/2023 023 12:17 AM LIVESTOCK FARMWORKER Respiratory Rule-Out 03/02/2024 03/02/2024 024 2:22 PM CDT COVID - 19 03/02/2024 03/02/2024 03/02/2024 2:22 PM CDT documented as of this encounter Care Teams Dope Worker Relationship Specialty Start Date End Date Federico Marti MD [address] [place] [address] PCP - General Family Medicine 08/19/22 04/25/25 documented as of this encounter
--- OUTSIDE RECORDS SUMMARY | 2025-06-28 10:56 | XMS_ITS | Encounter Summary ---
Author Organization [facility] Address [address] [facility] [place] [address] Phone Care Team Providers Care Senior Sales Assistant Name Role Phone Federico Marti MD Primary Care Provider [phone] Reason for Visit * Reason Comments Medication Refill Encounter Details Date Type Department Care Team (Late st Contact Info) Description 01/08/2023 Refill [facility] - Family Medicine [facility] [address] [place] [address] Federico Marti MD [address] [place] [address] Medication Refill Social History Tobacco Use Types [...] 90 days and meeting all other requirements TING TABLE WORKER documented in this encounter Plan of Treatment [...] 19 Confirmed 08/24/2023 08/24/2023 023 12:17 AM PRINTING TABLE WORKER Respiratory Rule-Out 03/02/2024 03/02/2024 024 2:22 PM CDT COVID - 19 03/02/2024 03/02/2024 03/02/2024 2:22 PM CDT documented as of this encounter Care Teams Senior Sales Assistant Relationship Specialty Start Date End Date Federico Marti MD [address] [place] [address] PCP - General Family Medicine 08/19/22 04/25/25 documented as of this encounter
--- OUTSIDE RECORDS SUMMARY | 2025-06-28 10:56 | XMS_ITS | Clinical Summary ---
Author Organization [facility] Address [facility] [place] [address] Care Team Providers Care Centrifugal Operator Name Role Phone Ildefonso Block MD Unavailable [phone] Debbie Clement NP Primary Care Provider [phone] Allergies Active Allergy Reactions Criticality Noted Date Comments Penicillins Hives Medium Medications multivitamin- Sa-yeur-ilbsh als tablet Take by mouth Activ e [...] loss. Assessment & Plan (12/21/2024 9:00 PM UTILIZATION MANAGEMENT RN): BMI 50.99. Assessment & Plan (10/12/2024 1:54 PM UTILIZATION MANAGEMENT RN): BMI 49.26.She was counseled on the importance [...] Emiliano Assessment & Plan (09/25/2021 2:29 PM UTILIZATION MANAGEMENT RN): Continue small frequent meals with goal calorie [...] Department Care Team Description 06/27/2025 Results Follow-Up [facility] [address] [place] [address] David Adkins PA CBC with auto differential, Comprehensive metabolic panel 06/26/2025 3:15 PM CDT Office Visit [facility] [address] [place] [address] David Adkins PA Fibromyalgia (Primary Dx); Polyarthralgia; Encounter for long-term (current) use of medications 05/11/2025 10:30 AM CDT Office Visit [facility] Primary Care at [address] [phone] Debbie Clement, DEZ Nausea and vomiting, unspecified vomiting type (Primary Dx); Encounter for screening mammogram for malignant neoplasm of breast; Class 3 severe obesity due to excess calories with body mass index (BMI) of 50.0 to 59.9 in adult 05/11/2025 Nurse Triage [facility] Primary Care at [address] [phone] Debbie Clement NP 04/24/2025 10:00 AM CDT Office Visit [facility] Convenient Care at [address] [phone] Nathalie Dudley PA Sunburn of second degree (Primary Dx) 04/24/2025 Nurse Triage [facility] Primary Care at [address] [phone] Debbie Clement, WAREHOUSE COORDINATOR 04/19/2025 2:00 PM CDT Office Visit [facility] Primary Care at [address] [phone] Debbie Clement, WAREHOUSE COORDINATOR Cellulitis of right upper extremity (Primary Dx); Morbid obesity with BMI of 50.0-59.9, adult (HCC) 04/10/2025 2:18 PM CDT - 04/10/2025 11:59 PM CDT Hospital Encounter [address] [phone] Discharge Disposition: Discharge to home or self care 04/10/[address] [phone] Mohinder Gibbs MD 03/31/2025 2:00 PM CDT Office Visit [facility] Primary Care at [address] [place] [phone] Debbie Clement NP Encounter for weight management (Primary Dx); Morbid obesity with BMI of 50.0-59.9, adult ([facility]); Insomnia, unspecified type; Symptoms involving urinary system; Acute cystitis without hematuria; Snores; Chronic diarrhea; Chronic pain of both knees 03/30/2025 Orders Only [address] [phone] Mohinder Gibbs MD 03/30/[address] [phone] Edgar Saldana 03/28/2025 11:00 AM CDT Office Visit [address] [phone] David Adkins PA Polyarthralgia (Primary Dx); Fibromyalgia; Class 3 severe obesity due to excess calories with body mass index (BMI) of 50.0 to 59.9 in adult 03/28/2025 Orders Only [address] [address] Mohinder Gibbs MD 03/28/[address] [phone] Edgar Saldana from Last 3 Months Immunizations [...] on file Legal Sex Female 3:17 PM UTILIZATION MANAGEMENT RN Gender Identity Not on file Sexual Orientation [...] PM CDT David RAMOS LAB BLOOD ORDERABLES [facility] Result [facility] [address] [place] [address] * Comprehensive metabolic panel (06/26/2025 3:47 PM CDT) [facility] Glucose 96 65 - 99 mg/dL [...] BLOOD ORDERABLES Fi nal Result [facility] [address] [place] [address] * POC Influenza A/B, COVID-19 antigen (05/11/2025 10:30 AM CDT) [facility] Influenza A Ag, POC Negative Negative [facility] Influenza B Ag, POC Negative Negative [facility] COVID-19 Ag POC Presumptive Negative Presumptive Negative, Invalid PCP [facility] Nasal 05/11/2025 10:3 0 AM CDT Debbie Clement NP POINT OF CARE TEST ORDERABLES Final Result PCP [facility] [address] [place] [phone], [facility] * SCAN - RADIOLOGY/IMAGING (04/10/2025 2:18 PM CDT) Anatomical Region Laterality Modality Ultrasound Provider Scanning Final Result * (ABNORMAL) POCT urinalysis dipstick (03/31/2025 2:33 PM CDT) Color, Urine, POC Dark Yellow Clarity, ur, POC Cloudy(A) Clear Glucose, ur, POC Negative Negative Bilirubin, ur, POC Negative Negative Ketones, ur, POC Negative Negative Specific [place], POC 1.030 1.003 - 1.030 Blood, ur, [...] - GENERAL OR DERABLES Final Result [facility] [address] Department [place] [address] from Last 3 Months or Most Recently Relevant to Health Maintenance Insurance [facility] PPO [facility] Care Teams Centrifugal Operator Relationship Specialty Start Date End Date Debbie Clement NP [address] [place] [address] PCP - General Family Medicine 06/14/24 Ildefonso Block MD [address] [place] [address] DR EDY Valencia [facility] [address] [place] [address] Surgeon Orthopedic Surgery 09/02/21
== END 2025-06-28 11:05 | disposition home or self-care (01) ==
LOC: ANHED 10:33
PROVIDERS: Emergency Provider Physician Assistant
DX: S82.831A Other fracture of upper and lower end of right fibula, initial encounter for closed fracture (principal); E66.01 Morbid (severe) obesity due to excess calories; Z68.43 Body mass index [BMI] 50.0-59.9, adult; F41.9 Anxiety disorder, unspecified; Z87.891 Personal history of nicotine dependence; X50.9XXA Other and unspecified overexertion or strenuous movements or postures, initial encounter; W10.9XXA Fall (on) (from) unspecified stairs and steps, initial encounter
CPT/HCPCS: 29515; 73610; 73700; 99284; A9270